=== PATIENT | female | born 1970 | race Caucasian/White ===

== ENCOUNTER 2020-10-07 19:07 | Emergency (ER) | payer OTHER ==
[2020-10-07 19:17] VITALS: RESP 17
--- NOTE | 2020-10-07 20:47 | CT ---
Exam: CT ORBITS WITH CONTRAST Clinical Indication: Left eye swelling and erythema. Comparison: None. Technique: A CT of the orbits was performed with 100 mL Isovue 300 intravenous contrast. Sagittal an d coronal reformations were obtained. Iterative dose modulation technique was performed. Findings: There is mild to moderate left preseptal orbital soft tissue edema without significant post septal in volvement. No soft tissue gas or focal fluid collection. The bilateral globes are otherwise preserved . There is no acute fracture or dislocation. The pterygoid plates and zygomatic arches, are intact. The paranasal sinuses and mastoid air cells are adequately aerated. Impression: Left preseptal orbital soft tissue edema without gas or fluid collection. No acute osseous abnormality.
--- NOTE | 2020-10-07 20:58 | ED ---
Skin/Abscess/FB HPI - General Chief complaint: Skin/Abscess/Foreign Body Stated complaint: lt eye swelling Source: patient, RN notes reviewed Mode of arrival: ambulatory Limitations: no limitations - History of Present Illness Initial comments: 50-year-old female presents to the emergency department complaining of left eye swelling. She notes that she had a bump on the inner aspect of her eye on the bridge of her nose that she tells pimple so she squeezed it. She noted that she woke up this morning with her eye swollen mildly tender to the touch. She denied any other complaints or issues. She notes that her eye is not painful to move. She wanted to come get evaluated make sure nothing was wrong. She denied any blurred vision pain with eye movement discharge chest pain shortness breath headache nausea vomiting diarrhea constipation fever fatigue chills. - Related Data Home Medications Medication Instructions Recorded Confirmed Citalopram Hydrobromide [CeleXA] 40 mg PO DAILY 02/27/14 04/12/15 Previous Rx's Medication Instructions Recorded lisinopriL [Zestril] 10 mg PO DAILY #30 tab 04/12/15 Sulfamethox-Tmp 800-160Mg [Bactrim 1 each PO Q12HR #20 tab 10/07/20 Ds] Allergies Allergy/AdvReac Type Severity Reaction Status Date / Time No Known Allergies Allergy Verified 10/07/20 19:17 Review of Systems ROS Statement: Those systems with pertinent positive or pertinent negative responses have been documented in the HPI. ROS Other: All systems not noted in ROS Statement are negative. Past Medical History Past Medical History: Hypertension Additional Past Medical History / Comment(s): anemia, History of Any Multi-Drug Resistant Organisms: None Reported Past Surgical History: Section Past Psychological History: Anxiety, Depression Smoking Status: Never smoker Past Alcohol Use History: Occasional Past Drug Use History: None Reported General Exam Limitations: no limitations General appearance: alert, in no apparent distress Head exam: Present: atraumatic, normocephalic, normal inspection Eye exam: Present: normal appearance, PERRL, EOMI, periorbital swelling, periorbital tenderness (Mild to the inner aspect on the bridge of the nose). Absent: scleral icterus, conjunctival injection Expanded Eyelids: Erythema: Left, Swelling: Left Pupils: Regular, Round: Bilateral, Reactive: Bilateral Sclera/Conjunctival: Normal Inspection: Bilateral Visual acuity (R) = 20/: 13 (With contacts) Visual acuity (L) = 20/: 13 (With contacts) Neck exam: Present: normal inspection Respiratory exam: Present: normal lung sounds bilaterally. Absent: respiratory distress, wheezes, rales, rhonchi, stridor Cardiovascular Exam: Present: regular rate, normal rhythm, normal heart sounds. Absent: systolic murmur, diastolic murmur, rubs, gallop, clicks Extremities exam: Present: normal inspection, full ROM, normal capillary refill. Absent: tenderness, pedal edema, joint swelling, calf tenderness Neurological exam: Present: alert, oriented X3 Psychiatric exam: Present: normal affect, normal mood Skin exam: Present: warm, dry, intact, normal color. Absent: rash Course Vital Signs 10/07/20 19:11 Temperature 100.2 F H Pulse Rate 71 Respiratory 17 Rate O2 Sat by Pulse 100 Oximetry Medical Decision Making - Medical Decision Making 50-year-old female complaining of left eye swelling and tenderness after squeezing which she follows up pimsocorro. CT of the orbits with IV contrast ordered. Patient on the need for any pain medication this time as she noted the pain was tolerable. Extraocular movement intact with no pain or discomfort in all directions. CT showed preseptal swelling. Given clinical symptoms and imaging most likely preseptal cellulitis, will start patient on antibiotics. Case discussed with Dr. Delarosa, patient discharge home with follow-up to primary care. - Radiology Data Radiology results: report reviewed, image reviewed CT of the orbits: Left preseptal orbital soft tissue edema without gas or fluid collection. No acute osseous abnormality. Disposition Clinical Impression: Preseptal cellulitis of left eye Disposition: HOME SELF-CARE Condition: Stable Instructions (If sedation given, give patient instructions): Periorbital Cellulitis in Adults (ED) Additional Instructions: Please return to the Emergency Department if symptoms worsen or any other concerns. Take Tylenol Motrin for inflammation. Take antibiotics as prescribed until complete. Follow-up with primary care and animal rescuer in the next several days. Is patient prescribed a controlled substance at d/c from ED?: No Referrals: Linda Colbert DO [Primary Care Provider] - 1-2 days Time of Disposition: 20:58
[2020-10-07 21:06] VITALS: BP 175/121; TEMP 98.4
[2020-10-07 21:07] VITALS: PULSE 79
[2020-10-07] MEDS ORDERED: lisinopriL 10 MG TAB PO STA (21:09)
[2020-10-07] MEDS ORDERED: AMOXIC-POT CLAV 875MG STARTER PACK 2 TAB BTL PO STA (21:09)
[2020-10-07] MEDS ORDERED: SULFAMETH-TMP DS STARTER PACK 2 TAB BTL PO STA (21:11)
== END 2020-10-07 21:17 | disposition home or self-care (01) ==
LOC: EC 19:07
DX: L03.213 Periorbital cellulitis (principal); I10 Essential (primary) hypertension
CPT/HCPCS: 99283; 70481; Q9967

== ENCOUNTER 2020-10-14 15:56 | Inpatient (IN) | payer OTHER ==
--- NOTE | 2020-10-14 16:36 | ED ---
General Adult HPI - General Chief complaint: Chest Pain Stated complaint: Chest pain/sob Time Seen by Provider: 10/14/20 16:16 Source: patient, RN notes reviewed, old records reviewed Mode of arrival: ambulatory Limitations: no limitations - History of Present Illness Initial comments: 50-year-old female presenting for evaluation of chest pain and dyspnea. Symptoms began about 2 hours prior to arrival. This is central chest. She did feel flushed and developed shortness of breath associated with her pain. This began suddenly. No previous history of DVT or PE. No history of CAD. No vomiting. No lower extremity pain or swelling. No control. No recent travel. - Related Data Home Medications Medication Instructions Recorded Confirmed Citalopram Hydrobromide [CeleXA] 40 mg PO DAILY 02/27/14 10/14/20 Acetaminophen Tab [Tylenol] 1,000 - 1,500 mg PO Q4-6H PRN 10/14/20 10/14/20 Aspirin 325 mg PO ONETIME PRN 10/14/20 10/14/20 Happy Caps (Supplement) 1 cap PO DAILY 10/14/20 10/14/20 Previous Rx's Medication Instructions Recorded Lisinopril [Prinivil] 10 mg PO DAILY 30 Days #30 tab 10/07/20 Sulfamethox-Tmp 800-160Mg [Bactrim 1 each PO Q12HR #20 tab 10/07/20 Ds] Allergies Allergy/AdvReac Type Severity Reaction Status Date / Time No Known Allergies Allergy Verified 10/14/20 18:59 Review of Systems ROS Statement: Those systems with pertinent positive or pertinent negative responses have been documented in the HPI. ROS Other: All systems not noted in ROS Statement are negative. Past Medical History Past Medical History: Hypertension Additional Past Medical History / Comment(s): anemia, History of Any Multi-Drug Resistant Organisms: None Reported Past Surgical History: Section Past Psychological History: Anxiety, Depression Smoking Status: Never smoker Past Alcohol Use History: Occasional Past Drug Use History: None Reported General Exam Limitations: no limitations General appearance: alert, in no apparent distress Head exam: Present: atraumatic, normocephalic Eye exam: Present: normal appearance, PERRL ENT exam: Present: normal exam Neck exam: Present: normal inspection. Absent: tenderness Respiratory exam: Present: normal lung sounds bilaterally, respiratory distress (Tachypneic with good air entry bilaterally.). Absent: wheezes, rales, rhonchi Cardiovascular Exam: Present: normal rhythm, tachycardia GI/Abdominal exam: Present: soft, tenderness (Epigastric tenderness to palpation). Absent: distended Extremities exam: Present: normal inspection, normal capillary refill. Absent: pedal edema, calf tenderness Neurological exam: Present: alert, oriented X3 Psychiatric exam: Present: normal affect, normal mood Skin exam: Present: warm, dry, intact. Absent: cyanosis, diaphoretic Course Vital Signs 10/14/20 10/14/20 15:58 19:09 Temperature 97.7 F Pulse Rate 108 H 101 H Respiratory 18 18 Rate Blood Pressure 167/109 157/108 O2 Sat by Pulse 98 98 Oximetry EKG Findings - EKG Comments: EKG Findings:: EKG: Sinus tachycardia, rate of 105, DC interval 156, QRS duration 70, QTC 457, no ST segment elevation. Medical Decision Making - Medical Decision Making 42-year-old female with chief complaint of chest pain and dyspnea which began suddenly prior to arrival. Patient is otherwise healthy with no chronic medical conditions. EKG is sinus tachycardia. No ST segment elevation. Chest x-ray is clear. There is concern for pulmonary embolism given her tachycardia and complaint of chest pain with dyspnea. CT angiography is negative for pulmonary embolism. She has on initial troponin 0.033 and a secondary troponin of 0.037 which is mildly elevated. She is given aspirin, beta ollie, started on heparin in the emergency department. I discussed case both with the admitting physician Dr. Wilson and and Dr. Melendez covering for cardiology. Patient is chest pain-free on reevaluation. - Lab Data Result diagrams: 10/14/20 16:35 10/14/20 16:35 Lab Results 10/14/20 10/14/20 10/14/20 Range/Units 16:35 16:35 16:35 WBC 4.5 (3.8-10.6) k/uL RBC 4.90 (3.80-5.40) m/uL Hgb 14.2 (11.4-16.0) gm/dL Hct 40.9 (34.0-46.0) % MCV 83.4 (80.0-100.0) fL MCH 29.1 (25.0-35.0) pg MCHC 34.8 (31.0-37.0) g/dL RDW 14.2 (11.5-15.5) % Plt Count 176 (150-450) k/uL MPV 6.8 Neutrophils % 75 % Lymphocytes % 13 % Monocytes % 5 % Eosinophils % 3 % Basophils % 1 % Neutrophils # 3.3 (1.3-7.7) k/uL Lymphocytes # 0.6 L (1.0-4.8) k/uL Monocytes # 0.2 (0-1.0) k/uL Eosinophils # 0.1 (0-0.7) k/uL Basophils # 0.1 (0-0.2) k/uL PT 9.7 (9.0-12.0) sec INR 0.9 (<1.2) APTT 23.2 (22.0-30.0) sec Sodium 134 L (137-145) mmol/L Potassium 3.8 (3.5-5.1) mmol/L Chloride 102 (98-107) mmol/L Carbon Dioxide 21 L (22-30) mmol/L Anion Gap 11 mmol/L BUN 11 (7-17) mg/dL Creatinine 0.79 (0.52-1.04) mg/dL Est GFR (CKD-EPI)AfAm >90 (>60 ml/min/1.73 sqM) Est GFR (CKD-EPI)NonAf 90 (>60 ml/min/1.73 sqM) Glucose 87 (74-99) mg/dL Calcium 9.0 (8.4-10.2) mg/dL Magnesium 1.8 (1.6-2.3) mg/dL Total Bilirubin 0.4 (0.2-1.3) mg/dL AST 42 H (14-36) U/L ALT 34 (4-34) U/L Alkaline Phosphatase 124 (38-126) U/L Troponin I (0.000-0.034) ng/mL Total Protein 7.9 (6.3-8.2) g/dL Albumin 4.3 (3.5-5.0) g/dL Amylase 71 (30-110) U/L Lipase 125 (23-300) U/L 10/14/20 10/14/20 Range/Units 16:35 17:55 WBC (3.8-10.6) k/uL RBC (3.80-5.40) m/uL Hgb (11.4-16.0) gm/dL Hct (34.0-46.0) % MCV (80.0-100.0) fL MCH (25.0-35.0) pg MCHC (31.0-37.0) g/dL RDW (11.5-15.5) % Plt Count (150-450) k/uL MPV Neutrophils % % Lymphocytes % % Monocytes % % Eosinophils % % Basophils % % Neutrophils # (1.3-7.7) k/uL Lymphocytes # (1.0-4.8) k/uL Monocytes # (0-1.0) k/uL Eosinophils # (0-0.7) k/uL Basophils # (0-0.2) k/uL PT (9.0-12.0) sec INR (<1.2) APTT (22.0-30.0) sec Sodium (137-145) mmol/L Potassium (3.5-5.1) mmol/L Chloride (98-107) mmol/L Carbon Dioxide (22-30) mmol/L Anion Gap mmol/L BUN (7-17) mg/dL Creatinine (0.52-1.04) mg/dL Est GFR (CKD-EPI)AfAm (>60 ml/min/1.73 sqM) Est GFR (CKD-EPI)NonAf (>60 ml/min/1.73 sqM) Glucose (74-99) mg/dL Calcium (8.4-10.2) mg/dL Magnesium (1.6-2.3) mg/dL Total Bilirubin (0.2-1.3) mg/dL AST (14-36) U/L ALT (4-34) U/L Alkaline Phosphatase (38-126) U/L Troponin I 0.033 0.037 H* (0.000-0.034) ng/mL Total Protein (6.3-8.2) g/dL Albumin (3.5-5.0) g/dL Amylase (30-110) U/L Lipase (23-300) U/L Critical Care Time Critical Care Time: Yes Total Critical Care Time: 35 Disposition Clinical Impression: Acute non-ST elevation myocardial infarction (NSTEMI) Disposition: ADMITTED IP TO THIS HOSP Condition: Stable Is patient prescribed a controlled substance at d/c from ED?: No Referrals: Linda Colbert DO [Primary Care Provider] - 1-2 days Decision to Admit Reason: Admit from EC Decision Date: 10/14/20 Decision Time: 19:12
[2020-10-14 16:43] LABS: Basophils # (A) 0.1 k/uL (0-0.2); Basophils % (A) 1 %; Eosinophils # (A) 0.1 k/uL (0-0.7); Eosinophils % (A) 3 %; HCT 40.9 % (34.0-46.0); HGB 14.2 gm/dL (11.4-16.0); Lymphocytes # (A) 0.6 k/uL (1.0-4.8); Lymphocytes % (A) 13 %; MCH 29.1 pg (25.0-35.0); MCHC 34.8 g/dL (31.0-37.0); MCV 83.4 fL (80.0-100.0); Mean Platelet Volume 6.8; Monocytes # (A) 0.2 k/uL (0-1.0); Monocytes % (A) 5 %; Neutrophils # (A) 3.3 k/uL (1.3-7.7); Neutrophils % (A) 75 %; Platelet Count 176 k/uL (150-450); RDW 14.2 % (11.5-15.5); WBC 4.5 k/uL (3.8-10.6)
--- NOTE | 2020-10-14 16:53 | CT ---
EXAMINATION TYPE: CT angio chest DATE OF EXAM: 10/14/2020 COMPARISON: None HISTORY: chest pain CT DLP: 360 mGycm Automated exposure control for dose reduction was used. CONTRAST: Performed with IV Contrast, patient injected with 100 mL of Isovue 370. There are 3-D post processed images. There is no mediastinal adenopathy. Thoracic aorta is intact. The ascending aorta measures 3.7 cm. Th ere is no dissection. There are no hilar masses. There is normal contrast opacification of the pulmon [place] arteries. There are no filling defects. Heart size is normal. There is no pericardial effusion. The lungs are clear of consolidation. There is no evidence of a pulmonary mass. Thoracic spine is int act. There is no compression fracture. IMPRESSION: No evidence of pulmonary embolism.
[2020-10-14 16:55] LABS: INR 0.9 (<1.2); Partial Thromboplastin Time 23.2 sec (22.0-30.0); Prothrombin Time 9.7 sec (9.0-12.0)
[2020-10-14 17:10] LABS: ALT 34 U/L (4-34); AST 42 U/L (14-36); African American GFR (CKD) >90 (>60 ml/min/1.73 sqM); Albumin 4.3 g/dL (3.5-5.0); Alkaline Phosphatase 124 U/L (38-126); Amylase 71 U/L (30-110); Anion Gap 11 mmol/L; Blood Urea Nitrogen 11 mg/dL (7-17); Carbon Dioxide 21 mmol/L (22-30); Chloride 102 mmol/L (98-107); Glucose 87 mg/dL (74-99); Lipase 125 U/L (23-300); Magnesium 1.8 mg/dL (1.6-2.3); Non-African American GFR(CKD) 90 (>60 ml/min/1.73 sqM); Potassium 3.8 mmol/L (3.5-5.1); Sodium 134 mmol/L (137-145); Total Bilirubin 0.4 mg/dL (0.2-1.3); Total Protein 7.9 g/dL (6.3-8.2)
--- NOTE | 2020-10-14 17:32 | XR ---
EXAMINATION TYPE: XR chest 2V DATE OF EXAM: 10/14/2020 COMPARISON: 04/12/2015 HISTORY: Chest pain TECHNIQUE: FINDINGS: Heart and mediastinum are normal. Lungs are clear. Diaphragm is normal. Bony thorax is inta ct. IMPRESSION: Normal chest.
[2020-10-14] MEDS ORDERED: HEPARIN SODIUM 1,000 UN/ML (10ML VL) IV PRN (17:40)
[2020-10-14] MEDS ORDERED: ASPIRIN 325 MG TAB PO STA (17:40)
[2020-10-14] MEDS ORDERED: HEPARIN SODIUM 1,000 UN/ML (10ML VL) IV ONE (17:40)
[2020-10-14] MEDS ORDERED: SODIUM CHLORIDE 0.9% 500 ML 500 ML IV ONE (18:15)
[2020-10-14] MEDS: HEPARIN SOD,PORK IN 0.45% NACL 25,000 UNIT in 0.45% NACL 1 250ML.BAG IV SCH (18:28)
[2020-10-14] MEDS ORDERED: NITROGLYCERIN SL TABS 0.4 MG TAB SUBLINGUAL PRN (18:52)
[2020-10-14] MEDS: ATORVASTATIN 80 MG TAB PO SCH (19:17)
[2020-10-14] MEDS ORDERED: METOPROLOL TARTRATE 25 MG TAB PO SCH (21:00)
[2020-10-14] MEDS: NITROGLYCERIN OINT 1 INCH/GM PACKET TOPICAL SCH (23:06)
[2020-10-14] MEDS ORDERED: diphenhydrAMINE 25 MG CAP PO STA (23:35)
--- NOTE | 2020-10-14 23:41 | P.HPIM ---
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 Suddenly around 10 in the morning while at work started experiencing some chest pressure she didn't think much of it as the day progressed it was getting worse and she started experiencing some more pressure in her chest nonradiating not associated with any movements or deep breaths, she was also feeling hot denies any nausea vomiting denies any sweating palpitations or dizziness. Her coworkers started noticing that she did not look herself and recommended that she gets evaluated. She reports that with moderately strenuous activities she would get some shortness of breath and she always thought that she is out of shape. She never had any cardiac workup she denies any history of CAD. However she reports that her cousins from mother's side has of premature CAD all in their 40s with open heart surgeries. 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 Otherwise denies any recent traveling or hospitalization she's been taking some Bactrim for infected papule at her nasal bridge. In the ED EKG showed sinus tachycardia CT angios the chest showed no acute PE troponins were slightly elevated, Covid testing negative Patient otherwise denies any abdominal pain nausea vomiting diarrhea denies in GI bleeding. She is currently on her period. Review of Systems Pertinent positives as noted in HPI. All other systems were reviewed and are neg ative Past Medical History Past Medical History: Hypertension Additional Past Medical History / Comment(s): anemia, History of Any Multi-Drug Resistant Organisms: None Reported Past Surgical History: Section Past Psychological History: Anxiety, Depression Smoking Status: Never smoker Past Alcohol Use History: Occasional Past Drug Use History: None Reported - Past Family History Family Additional Family Medical History / Comment(s): Premature CAD Cousens from mother's side Medications and Allergies Home Medications Medication Instructions Recorded Confirmed Type Citalopram Hydrobromide [CeleXA] 40 mg PO DAILY 02/27/14 10/14/20 History Lisinopril [Prinivil] 10 mg PO DAILY 30 Days #30 tab 10/07/20 10/14/20 Rx Sulfamethox-Tmp 800-160Mg [Bactrim 1 each PO Q12HR #20 tab 10/07/20 10/14/20 Rx Ds] Acetaminophen Tab [Tylenol] 1,000 - 1,500 mg PO Q4-6H PRN 10/14/20 10/14/20 History Aspirin 325 mg PO ONETIME PRN 10/14/20 10/14/20 History Happy Caps (Supplement) 1 cap PO DAILY 10/14/20 10/14/20 History Allergies Allergy/AdvReac Type Severity Reaction Status Date / Time No Known Allergies Allergy Verified 10/14/20 18:59 Physical Exam Vitals: Vital Signs Temp Pulse Resp BP Pulse Ox 10/14/20 19:09 101 H 18 157/108 98 10/14/20 15:58 97.7 F 108 H 18 167/109 98 Intake and Output 10/14/20 10/14/20 10/14/20 06:59 14:59 22:59 Other: Weight 90.718 kg Constitutional: No acute distress, conversant, pleasant Eyes: Anicteric sclerae, moist conjunctiva, Pupils equal round reactive to light ENMT: NC/AT Oropharynx clear, no erythema, or exudates Neck: Supple, FROM, no masses, or JVD No carotid bruits No thyromegaly Lungs: Clear to auscultation Clear to percussion Normal respiratory effort, no accessory muscle use Cardiovascular: Heart regular in rate and rhythm, No murmurs, gallops, or rubs No peripheral edema Abdominal: Soft Nontender, no guarding, rebound or rigidity Abdomen moving with respiration Normoactive bowel sounds No hepatomegaly, No splenomegaly No palpable mass No abdominal wall hernia noted Skin: Her skin look flushed with diffuse erythema nor to Cartia no hives no stridors no wheezing . She is not aware of any ALLERGIES Normal temperature, tone, texture, turgor No induration No subcutaneous nodules No rash, lesions No ulcers Extremities: No digital cyanosis No clubbing Pedal pulses intact and symmetrical Radial pulses intact and symmetrical No calf tenderness Psychiatric: Alert and oriented to person, place and time Appropriate affect fair judgement Neuro Muscles Strength 5/5 in all 4 extremities Sensation to light touch grossly present throughout Cranial nerves II-XII grossly intact No focal sensory deficits Lymphatics: no palpable cervical or supraclavicular , or inguinal lymph nodes Results CBC & Chem 7: 10/14/20 16:35 10/14/20 16:35 Labs: Abnormal Lab Results - Last 24 Hours (Table) 10/14/20 10/14/20 10/14/20 Range/Units 16:35 16:35 17:55 Lymphocytes # 0.6 L (1.0-4.8) k/uL Sodium 134 L (137-145) mmol/L Carbon Dioxide 21 L (22-30) mmol/L AST 42 H (14-36) U/L Troponin I 0.037 H* (0.000-0.034) ng/mL Assessment and Plan Assessment: NSTEMI Trend troponins Aspirin, statin, nitro Metoprolol 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
[2020-10-14] MEDS ORDERED: FAMOTIDINE 20 MG/2 ML VIAL IV ONE (23:45)
[2020-10-14] MEDS: chlordiazePOXIDE 25 MG CAP PO SCH (23:56)
[2020-10-15] MEDS ORDERED: LORazepam 2 MG/ML INJ IV PRN ×3 (00:20)
[2020-10-15] MEDS: TRIMETHOPRIM PO SCH ×3 (03:33→21:15)
[2020-10-15] MEDS: SULFAMETHOXAZOLE PO SCH ×3 (03:33→21:15)
[2020-10-15] MEDS: ACETAMINOPHEN TAB 325 MG TAB PO PRN ×3 (04:12→20:28)
[2020-10-15] MEDS: NITROGLYCERIN OINT 1 INCH/GM PACKET TOPICAL SCH ×3 (06:03→17:42)
[2020-10-15 07:21] LABS: Prothrombin Time 10.6 sec (9.0-12.0)
[2020-10-15 07:31] LABS: ALT 29 U/L (4-34); AST 30 U/L (14-36); African American GFR (CKD) >90 (>60 ml/min/1.73 sqM); Albumin 3.2 g/dL (3.5-5.0); Alkaline Phosphatase 95 U/L (38-126); Anion Gap 5 mmol/L; Blood Urea Nitrogen 9 mg/dL (7-17); Calcium 8.3 mg/dL (8.4-10.2); Carbon Dioxide 23 mmol/L (22-30); Chloride 108 mmol/L (98-107); Glucose 97 mg/dL (74-99); Non-African American GFR(CKD) >90 (>60 ml/min/1.73 sqM); Potassium 3.8 mmol/L (3.5-5.1); Sodium 136 mmol/L (137-145); Total Bilirubin 0.2 mg/dL (0.2-1.3); Total Protein 6.2 g/dL (6.3-8.2)
[2020-10-15 07:35] LABS: HCT 35.7 % (34.0-46.0); HGB 11.7 gm/dL (11.4-16.0); MCH 27.6 pg (25.0-35.0); MCV 83.9 fL (80.0-100.0); RBC 4.26 m/uL (3.80-5.40); WBC 3.4 k/uL (3.8-10.6)
[2020-10-15 07:36] LABS: MCHC 32.9 g/dL (31.0-37.0); Mean Platelet Volume 6.8; Platelet Count 142 k/uL (150-450); RDW 14.6 % (11.5-15.5)
[2020-10-15] MEDS: lisinopriL 10 MG TAB PO SCH (08:10)
[2020-10-15] MEDS: METOPROLOL TARTRATE 50 MG TAB PO SCH ×2 (08:10→20:28)
[2020-10-15] MEDS: CITALOPRAM HYDROBROMIDE 20 MG TAB PO SCH (08:10)
[2020-10-15] MEDS: ATORVASTATIN 80 MG TAB PO SCH (08:10)
[2020-10-15] MEDS: chlordiazePOXIDE 25 MG CAP PO SCH ×3 (08:11→23:13)
[2020-10-15 08:43] LABS: Lymphocytes # (M) 0.68 k/uL (1.0-4.8); Monocytes # (M) 0.44 k/uL (0-1.0); Neutrophils # (M) 2.18 k/uL (1.3-7.7); Neutrophils % (M) 64 %; Nucleated Red Blood Cells 0 /100 WBC (0-0); Total Cells Counted 100
[2020-10-15] MEDS ORDERED: ASPIRIN 325 MG TAB PO SCH (09:00)
--- NOTE | 2020-10-15 11:27 | P.CRDCN ---
History of Present Illness Consult date: 10/15/20 History of present illness: HISTORY OF PRESENT ILLNESS: This is a 50-year-old female with a past medical history significant for hypertension and daily alcohol use. 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 We have been asked to see the patient in consultation for chest pain. Patient examined at the bedside. Patient reports over the past week she has been feeling very tired and having what she thought was hot flashes. She states yesterday she was at work and was sitting at her desk when she began to feel short of breath. She reports having some mild chest pressure. She states this was intermittent over a couple hours. She denies any radiation of the pain. She denied any dizziness or lightheadedness. She states a coworker recommended that she come to the hospital for further evaluation. At the time of examination this morning the patient reports minimal shortness of breath with exertion and very minimal chest discomfort with exertion. She appears to be resting in bed comfortably in no acute distress. Patient is a nonsmoker. She reports drinking one hard cider or 1-2 glasses of wine a day. She denies any history of premature coronary artery disease. However according to internal medicine's documentation, the patient does have a family history of heart disease (cousins on her mothers side). Patient denies ever having a stress test or cardiac catheterization in the past. EKG reveals sinus tachycardia with no signs of acute ischemia Chest xray normal chest Laboratory data: WBC 3.4. Hemoglobin 11.7. Platelet count 142. Sodium 135. Potassium 3.8. BUN 9. Creatinine 0.74. Troponin 0.033. 0.037. 0.048. 0.044. 0.018. Current home cardiac medications include lisinopril 10 mg daily REVIEW OF SYSTEMS: At the time of my exam: CONSTITUTIONAL: Denies fever or chills. HEENT: Denies blurred vision, vision changes, or eye pain. Denies hemoptysis CARDIOVASCULAR: Denies chest pain. Denies orthopnea. Denies PND. Denies palpitations RESPIRATORY: Denies shortness of breath. GASTROINTESTINAL: Denies abdominal pain. Denies nausea or vomiting. HEMATOLOGIC: Denies bleeding disorders. GENITOURINARY: Denies any blood in urine. SKIN: Denies pruitis. Denies rash. PHYSICAL EXAM: VITAL SIGNS: Reviewed. GENERAL: Well-developed in no acute distress. HEENT: Head is normocephalic. Pupils are equal, round. Sclerae anicteric. Mucous membranes of the mouth are moist. Neck supple. No JVD or thyromegaly LUNGS: Respirations even and unlabored. Lungs essentially clear to auscultation bilaterally. HEART: Regular rate and rhythm. S1 and S2 heard. ABDOMEN: Soft. Nondistended. Nontender. EXTREMITIES: Normal range of motion. No clubbing or cyanosis. Peripheral pulses intact. No lower extremity edema NEUROLOGIC: Awake and alert. Oriented x 3. ASSESSMENT: Chest pain and shortness of breath Mildly abnormal troponins, not suggestive of ACS Hypertension Daily alcohol use PLAN: An acute coronary event has been ruled out Continue Lisinopril Add aspirin 81mg daily, lipitor 20mg, and metoprolol 50mg BID Continue heparin drip until 6pm tonight and then DC. Start subcu heparin afterwards. Obtain lipid panel Obtain 2D echo to assess cardiac structure and function Patient to undergo stress echocardiogram tomorrow Absence from alcohol recommended Further recommendations pending course Nurse practitioner note has been reviewed by physician. Signing provider agrees with the documented findings, assessment, and plan of care. Past Medical History Past Medical History: Hypertension Additional Past Medical History / Comment(s): anemia, History of Any Multi-Drug Resistant Organisms: None Reported Past Surgical History: Section Past Anesthesia/Blood Transfusion Reactions: No Reported Reaction Past Psychological History: Anxiety, Depression Smoking Status: Never smoker Past Alcohol Use History: Occasional Past Drug Use History: None Reported - Past Family History Family Additional Family Medical History / Comment(s): Premature CAD Cousens from mother's side Medications and Allergies Home Medications Medication Instructions Recorded Confirmed Type Citalopram Hydrobromide [CeleXA] 40 mg PO DAILY 02/27/14 10/14/20 History Lisinopril [Prinivil] 10 mg PO DAILY 30 Days #30 tab 10/07/20 10/14/20 Rx Sulfamethox-Tmp 800-160Mg [Bactrim 1 each PO Q12HR #20 tab 10/07/20 10/14/20 Rx Ds] Acetaminophen Tab [Tylenol] 1,000 - 1,500 mg PO Q4-6H PRN 10/14/20 10/14/20 History Aspirin 325 mg PO ONETIME PRN 10/14/20 10/14/20 History Happy Caps (Supplement) 1 cap PO DAILY 10/14/20 10/14/20 History Allergies Allergy/AdvReac Type Severity Reaction Status Date / Time No Known Allergies Allergy Verified 10/14/20 18:59 Physical Exam Vitals: Vital Signs Temp Pulse Pulse Resp BP BP Pulse Ox 10/15/20 08:05 97.6 F 86 16 113/73 96 10/15/20 03:57 98.1 F 94 16 119/78 99 10/14/20 23:45 91 16 131/84 98 10/14/20 20:56 98.7 F 94 16 137/101 98 10/14/20 20:18 98.6 F 101 H 18 153/101 98 10/14/20 19:09 101 H 18 157/108 98 10/14/20 15:58 97.7 F 108 H 18 167/109 98 Intake and Output 10/14/20 10/15/20 10/15/20 22:59 06:59 14:59 Intake Total 65.98 91.789 Balance 65.98 91.789 Intake: Intake, IV Titration 65.98 91.789 Amount Heparin Sod,Pork in 0.45% 65.98 91.789 NaCl 25,000 unit In 0.45 % NaCl 1 250ml.bag @ 11. 02 UNITS/KG/HR 9.997 mls/ hr IV .Q24H [facility] Rx#: [id number] Other: Voiding Method Toilet Toilet # Voids 1 Weight 90.718 kg Results 10/15/20 06:36 10/15/20 06:36 Cardiac Enzymes 10/14/20 10/14/20 10/14/20 Range/Units 16:35 16:35 17:55 AST 42 H (14-36) U/L Troponin I 0.033 0.037 H* (0.000-0.034) ng/mL 10/14/20 10/14/20 10/15/20 Range/Units 20:29 23:54 06:36 AST 30 (14-36) U/L Troponin I 0.048 H* 0.044 H* (0.000-0.034) ng/mL 10/15/20 Range/Units 06:36 AST (14-36) U/L Troponin I 0.018 (0.000-0.034) ng/mL Coagulation 10/14/20 10/14/20 10/15/20 Range/Units 16:35 23:54 06:36 PT 9.7 10.6 (9.0-12.0) sec APTT 23.2 31.1 H 41.0 H (22.0-30.0) sec CBC 10/14/20 10/15/20 Range/Units 16:35 06:36 WBC 4.5 3.4 L (3.8-10.6) k/uL RBC 4.90 4.26 (3.80-5.40) m/uL Hgb 14.2 11.7 (11.4-16.0) gm/dL Hct 40.9 35.7 (34.0-46.0) % Plt Count 176 142 L (150-450) k/uL Comprehensive Metabolic Panel 10/14/20 10/15/20 Range/Units 16:35 06:36 Sodium 134 L 136 L (137-145) mmol/L Potassium 3.8 3.8 (3.5-5.1) mmol/L Chloride 102 108 H (98-107) mmol/L Carbon Dioxide 21 L 23 (22-30) mmol/L BUN 11 9 (7-17) mg/dL Creatinine 0.79 0.74 (0.52-1.04) mg/dL Glucose 87 97 (74-99) mg/dL Calcium 9.0 8.3 L (8.4-10.2) mg/dL AST 42 H 30 (14-36) U/L ALT 34 29 (4-34) U/L Alkaline Phosphatase 124 95 (38-126) U/L Total Protein 7.9 6.2 L (6.3-8.2) g/dL Albumin 4.3 3.2 L (3.5-5.0) g/dL Current Medications Generic Name Dose Route Start Last Admin Trade Name Freq PRN Reason Stop Dose Admin Acetaminophen 650 mg 10/15/20 04:10 10/15/20 11:15 Acetaminophen Tab 325 Mg Tab PO 650 mg Q6HR PRN Administration Fever and/ or Pain Aspirin 81 mg 10/16/20 09:00 Aspirin 81 Mg PO DAILY [facility] Atorvastatin Calcium 80 mg 10/14/20 19:00 10/15/20 08:10 Atorvastatin 80 Mg Tab PO 80 mg DAILY SANKET Administration Chlordiazepoxide HCl 25 mg 10/14/20 23:15 10/15/20 08:11 Chlordiazepoxide 25 Mg Cap PO 25 mg TID [facility] Administration Citalopram Hydrobromide 40 mg 10/15/20 09:00 10/15/20 08:10 Citalopram Hydrobromide 20 Mg Tab PO Not Given DAILY [facility] Heparin Sodium (Porcine) 0 unit 10/14/20 17:40 10/15/20 08:15 Heparin Sodium 1,000 Un/Ml (10ml Vl) IV 4,000 unit PER PROTOCOL PRN Administration Low PTT Protocol Heparin Sodium/Sodium Chloride 250 mls @ 9.997 mls/hr 10/14/20 17:45 10/15/20 08:17 25,000 unit/ Sodium Chloride IV 17.03 units/kg/hr .Q24H SANKET 15.449 mls/hr Titration Protocol 11.02 UNITS/KG/HR Lisinopril 10 mg 10/15/20 09:00 10/15/20 08:10 Lisinopril 10 Mg Tab PO 10 mg DAILY [facility] Administration Lorazepam 1 mg 10/15/20 00:20 Lorazepam 2 Mg/Ml Inj IV Q2HR PRN CIWA 8 or 9 Lorazepam 1 mg 10/15/20 00:20 Lorazepam 2 Mg/Ml Inj IV Q1HR PRN CIWA 10 to 15 Lorazepam 2 mg 10/15/20 00:20 Lorazepam 2 Mg/Ml Inj IV 10/17/20 00:20 Q10M PRN CIWA 16 or higher Metoprolol Tartrate 50 mg 10/15/20 09:00 10/15/20 08:10 Metoprolol Tartrate 50 Mg Tab PO 50 mg BID [facility] Administration Nitroglycerin 0.4 mg 10/14/20 18:52 Nitroglycerin Sl Tabs 0.4 Mg Tab SUBLINGUAL Q5M PRN Chest Pain Nitroglycerin 1 inch 10/15/20 00:00 10/15/20 06:03 Nitroglycerin Oint 1 Inch/Gm Packet TOPICAL Not Given Q6HR [facility] Non-Formulary Medication 1 each 10/14/20 23:15 10/15/20 08:11 Sulfamethox-Tmp 800-160mg [Bactrim Ds 800-160 Mg] PO Not Given Q12HR [facility] Thiamine HCl 100 mg 10/15/20 17:30 Thiamine 100 Mg Tab PO BID-W/MEALS [facility] Intake and Output 10/14/20 10/15/20 10/15/20 22:59 06:59 14:59 Intake Total 65.98 91.789 Balance 65.98 91.789 Intake: Intake, IV Titration 65.98 91.789 Amount Heparin Sod,Pork in 0.45% 65.98 91.789 NaCl 25,000 unit In 0.45 % NaCl 1 250ml.bag @ 11. 02 UNITS/KG/HR 9.997 mls/ hr IV .Q24H [facility] Rx#: [id number] Other: Voiding Method Toilet Toilet # Voids 1 Weight 90.718 kg 10/15/20 06:36 10/15/20 06:36
[2020-10-15 13:11] LABS: Chol/HDL Ratio 5.52; Cholesterol 116 mg/dL (0-200)
--- NOTE | 2020-10-15 13:41 | P.PN ---
Subjective Progress Note Date: 10/15/20 Patient was sleepy this morning when I saw her. She denies any chest pain. No acute events overnight reported by nursing staff. Objective - Vital Signs Vital signs: Vital Signs Temp 98 F 10/15/20 12:05 Pulse 76 10/15/20 12:05 Resp 16 10/15/20 12:05 BP 98/63 10/15/20 12:05 Pulse Ox 95 10/15/20 12:05 Intake & Output 10/14/20 10/15/20 10/15/20 18:59 06:59 18:59 Intake Total 65.98 91.789 Balance 65.98 91.789 Weight 90.718 kg 90.718 kg Intake: Intake, IV Titration 65.98 91.789 Amount Heparin Sod,Pork in 0.45% 65.98 91.789 NaCl 25,000 unit In 0.45 % NaCl 1 250ml.bag @ 11. 02 UNITS/KG/HR 9.997 mls/ hr IV .Q24H [facility] Rx#: [id number] Other: Voiding Method Toilet # Voids 1 # Bowel Movements 0 - Exam General: The patient is awake and alert, in no distress Eye: there is normal conjunctiva bilaterally. Neck: The neck is supple, there is no JVD. Cardiovascular: Normal S1-S2, no S3-S4, no murmurs. Respiratory: Lungs clear to auscultation bilaterally Gastrointestinal: Abdomen is soft, nontender Musculoskeletal: There is no pedal edema. Neurological:. Speech is normal. Skin: Skin is warm and dry - Labs CBC & Chem 7: 10/15/20 06:36 10/15/20 06:36 Labs: Abnormal Lab Results - Last 24 Hours (Table) 10/14/20 10/14/20 10/14/20 Range/Units 16:35 16:35 17:55 WBC (3.8-10.6) k/uL Plt Count (150-450) k/uL Lymphocytes # 0.6 L (1.0-4.8) k/uL Lymphocytes # (Manual) (1.0-4.8) k/uL APTT (22.0-30.0) sec Sodium 134 L (137-145) mmol/L Chloride (98-107) mmol/L Carbon Dioxide 21 L (22-30) mmol/L Calcium (8.4-10.2) mg/dL AST 42 H (14-36) U/L Troponin I 0.037 H* (0.000-0.034) ng/mL Total Protein (6.3-8.2) g/dL Albumin (3.5-5.0) g/dL HDL Cholesterol (40.0-60.0) mg/dL 10/14/20 10/14/20 10/14/20 Range/Units 20:29 23:54 23:54 WBC (3.8-10.6) k/uL Plt Count (150-450) k/uL Lymphocytes # (1.0-4.8) k/uL Lymphocytes # (Manual) (1.0-4.8) k/uL APTT 31.1 H (22.0-30.0) sec Sodium (137-145) mmol/L Chloride (98-107) mmol/L Carbon Dioxide (22-30) mmol/L Calcium (8.4-10.2) mg/dL AST (14-36) U/L Troponin I 0.048 H* 0.044 H* (0.000-0.034) ng/mL Total Protein (6.3-8.2) g/dL Albumin (3.5-5.0) g/dL HDL Cholesterol (40.0-60.0) mg/dL 10/15/20 10/15/20 10/15/20 Range/Units 06:36 06:36 06:36 WBC 3.4 L (3.8-10.6) k/uL Plt Count 142 L (150-450) k/uL Lymphocytes # (1.0-4.8) k/uL Lymphocytes # (Manual) 0.68 L (1.0-4.8) k/uL APTT 41.0 H (22.0-30.0) sec Sodium 136 L (137-145) mmol/L Chloride 108 H (98-107) mmol/L Carbon Dioxide (22-30) mmol/L Calcium 8.3 L (8.4-10.2) mg/dL AST (14-36) U/L Troponin I (0.000-0.034) ng/mL Total Protein 6.2 L (6.3-8.2) g/dL Albumin 3.2 L (3.5-5.0) g/dL HDL Cholesterol 21.0 L (40.0-60.0) mg/dL Assessment and Plan Assessment: This is a 50-year-old female with past medical history noted below that presented to the emergency room with chest pain. Patient was evaluated in the ER and admitted to the hospital for further management of her medical problems noted below. 1. Non-ST elevation [place], with slightly elevated troponin. Treated medically with IV heparin, aspirin, and Lipitor. Seen and evaluated by cardiology. Cardiac stress test and echocardiogram ordered for tomorrow. 2. Essential hypertension: Blood pressure within acceptable range 3. Alcohol abuse: Counseled extensively to quit. Ativan as needed per [facility] protocol Today, I reviewed her medication list and lab work results. Continue current regimen. Plan to discontinue heparin tonight. CT angiogram in the ER negative for PE.
[2020-10-15] MEDS: THIAMINE 100 MG TAB PO SCH (16:38)
[2020-10-15] MEDS: HEPARIN SOD,PORK IN 0.45% NACL 25,000 UNIT in 0.45% NACL 1 250ML.BAG IV SCH (16:55)
[2020-10-15] MEDS: HEPARIN SODIUM,PORCINE/PF 5,000 UNIT/0.5 ML SYRINGE SQ SCH (20:27)
[2020-10-16] MEDS: ACETAMINOPHEN TAB 325 MG TAB PO PRN ×2 (05:25→12:09)
[2020-10-16] MEDS: NITROGLYCERIN OINT 1 INCH/GM PACKET TOPICAL SCH ×4 (05:34→17:39)
[2020-10-16] MEDS ORDERED: ASPIRIN 81 MG PO SCH (09:00)
[2020-10-16] MEDS ORDERED: ATORVASTATIN 20 MG TAB PO SCH (09:00)
[2020-10-16] MEDS: THIAMINE 100 MG TAB PO SCH ×2 (09:14→17:39)
[2020-10-16] MEDS: HEPARIN SODIUM,PORCINE/PF 5,000 UNIT/0.5 ML SYRINGE SQ SCH (09:14)
[2020-10-16] MEDS: chlordiazePOXIDE 25 MG CAP PO SCH ×2 (09:14→17:38)
[2020-10-16] MEDS: CITALOPRAM HYDROBROMIDE 20 MG TAB PO SCH (09:14)
[2020-10-16] MEDS: lisinopriL 10 MG TAB PO SCH (09:14)
[2020-10-16] MEDS: SULFAMETHOXAZOLE PO SCH (09:22)
[2020-10-16] MEDS: TRIMETHOPRIM PO SCH (09:22)
[2020-10-16] MEDS ORDERED: KETOROLAC 15 MG/ML 1 ML VIAL IVP PRN (10:50)
[2020-10-16] MEDS: METOPROLOL TARTRATE 50 MG TAB PO SCH (12:09)
[2020-10-16 12:20] VITALS: TEMP 97.7
--- NOTE | 2020-10-16 13:54 | P.STRESS ---
- Stress Test Note Stress Test Results/Findings: Exam Performed: stress echo exercise Exam Date: 10/16/20 Reason for Exam: NSTEMI Height: 5 ft 7 in Weight: 91.3 kg Protocol: STRESS ECHO Stage: 3 Duration of Exercise: 7:24 Resting Heart Rate: 74 Resting Blood Pressure: 121/86 Maximum Achieved Heart Rate: 145 Maximum Achieved Blood Pressure: 166/63 85% PMHR: 146 100% PMHR: 172 METS: 8.9 Technologist Comment: Stress Test Results/Findings: This is a 50-year-old female with history of hypertension being evaluated for symptoms of shortness of breath. Stress data: Baseline EKG showed a sinus rhythm with normal IA interval and QRS duration. Blood pressure at rest is 121/86 with pulse rate of 74. Patient walked on the David protocol for 7 minutes and 24 seconds, reaching a maximum heart rate of 145 with a peak blood pressure 166/63. EKGs taken during and after the exercise did not reveal any significant changes from the baseline. Echo data: Baseline. He echo images show normal wall motion and thickening. The exercise echo images showed augmentation of wall motion and thickening in all the segments. Final impression: #1. Negative stress test #2. Negative stress echo.
[2020-10-16 14:59] VITALS: BP 107/56; PULSE 56; RESP 16
--- NOTE | 2020-10-16 15:06 | P.DS ---
Providers Date of admission: 10/14/20 18:54 Expected date of discharge: 10/16/20 Attending physician: Darnell Horta Consults: 10/14/20 18:53 Consult Physician Urgent Consulting Provider: Akilah Melendez Consult Reason/Comments: NSTEMI Do you want consulting provider notified?: Yes Primary care physician: [facility] Course: This is a 50-year-old female with past medical history noted below that presented to the emergency room with chest pain. Patient was evaluated in the ER and admitted to the hospital for further management of her medical problems noted below. 1. Non-ST elevation [place], with slightly elevated troponin. Treated medically with IV heparin, aspirin, and Lipitor. Seen and evaluated by cardiology. Troponin returned back to normal. Patient underwent cardiac stress test that was negative. It was thought that her troponin elevation secondary to demand/supply mismatch. Patient will be discharged home on aspirin. LDL is 72. CT angiogram on presentation negative for PE. 2. Essential hypertension: Blood pressure within acceptable range 3. Alcohol abuse: Counseled extensively to quit. Patient will be discharged home in a stable condition. For further details about this hospitalization please refer to the electronic chart. Time spent on discharge > 30 minutes including counseling and coordination of care Patient Condition at Discharge: Stable Plan - Discharge Summary Discharge Rx Participant: No New Discharge Prescriptions: New Aspirin 81 mg PO DAILY #30 chew Continue Citalopram Hydrobromide [CeleXA] 40 mg PO DAILY Lisinopril [Prinivil] 10 mg PO DAILY 30 Days #30 tab Acetaminophen Tab [Tylenol] 1,000 - 1,500 mg PO Q4-6H PRN PRN Reason: Pain Discontinued Aspirin 325 mg PO ONETIME PRN PRN Reason: Chest Pain No Action Sulfamethox-Tmp 800-160Mg [Bactrim Ds] 1 each PO Q12HR #20 tab Happy Caps (Supplement) 1 cap PO DAILY Discharge Medication List Citalopram Hydrobromide [CeleXA] 40 mg PO DAILY 02/27/14 [History] Lisinopril [Prinivil] 10 mg PO DAILY 30 Days #30 tab 10/07/20 [Rx] Sulfamethox-Tmp 800-160Mg [Bactrim Ds] 1 each PO Q12HR #20 tab 10/07/20 [Rx] Acetaminophen Tab [Tylenol] 1,000 - 1,500 mg PO Q4-6H PRN 10/14/20 [History] Happy Caps (Supplement) 1 cap PO DAILY 10/14/20 [History] Aspirin 81 mg PO DAILY #30 chew 10/16/20 [Rx] Follow up Appointment(s)/Referral(s): Akilah Melendez MD [STAFF PHYSICIAN] - 1 Week Linda Colbert DO [Primary Care Provider] - 1-2 days
--- NOTE | 2020-10-17 12:00 | ECHOS ---
Stress Test Results/Findings: Exam Performed: stress echo exercise Exam Date: 10/16/20 Reason for Exam: NSTEMI Height: 5 ft 7 in Weight: 91.3 kg Protocol: STRESS ECHO Stage: 3 Duration of Exercise: 7:24 Resting Heart Rate: 74 Resting Blood Pressure: 121/86 Maximum Achieved Heart Rate: 145 Maximum Achieved Blood Pressure: 166/63 85% PMHR: 146 100% PMHR: 172 METS: 8.9 Technologist Comment: Stress Test Results/Findings: This is a 50-year-old female with history of hypertension being evaluated for symptoms of shortness of breath. Stress data: Baseline EKG showed a sinus rhythm with normal MD interval and QRS duration. Blood pressure at rest is 121/86 with pulse rate of 74. Patient walked on the David protocol for 7 minutes and 24 seconds, reaching a maximum heart rate of 145 with a peak blood pressure 166/63. EKGs taken during and after the exercise did not reveal any significant changes from the baseline. Echo data: Baseline. He echo images show normal wall motion and thickening. The exercise echo images showed augmentation of wall motion and thickening in all the segments. Final impression: #1. Negative stress test #2. Negative stress echo. GAURAV
--- NOTE | 2020-10-31 09:39 | ECHOF ---
Referral Reason:NSTEMI MEASUREMENTS -------- HEIGHT: 170.2 cm WEIGHT: 90.7 kg BP: 122/78 RVIDd: 3.2 cm (< 3.3) IVSd: 1.1 cm (0.6 - 1.1) LVIDd: 4.2 cm (3.9 - 5.3) LVPWd: 1.2 cm (0.6 - 1.1) IVSs: 1.7 cm LVIDs: 2.9 cm LVPWs: 1.6 cm LA Diam: 3.5 cm (2.7 - 3.8) LAESV Index (A-L): 21.85 ml/m Ao Diam: 3.2 cm (2.0 - 3.7) AV Cusp: 2.2 cm (1.5 - 2.6) MV EXCURSION: 16.269 mm (> 18.000) MV EF SLOPE: 116 mm/s (70 - 150) EPSS: 0.4 cm MV E Keegan: 0.82 m/s MV DecT: 257 ms MV A Keegan: 0.69 m/s MV E/A Ratio: 1.20 RAP: 5.00 mmHg RVSP: 29.66 mmHg FINDINGS -------- Sinus rhythm. This was a technically good study. The left ventricular size is normal. There is borderline concentric left ventricular hypertrophy. Overall left ventricular systolic function is normal with, an EF between 60 - 65 %. The right ventricle is normal in size. Normal LA size by volume 22+/-6 ml/m2. The right atrium is normal in size. Interatrial and interventricular septum intact. The aortic valve is trileaflet, and appears structurally normal. No aortic stenosis or regurgitation. There is trace to mild mitral regurgitation. Mild tricuspid regurgitation present. Right ventricular systolic pressure is normal at < 35 mmHg. There is no pulmonic regurgitation present. The aortic root size is normal. Normal inferior vena cava with normal inspiratory collapse consistent with estimated right atrial pre ssure of 5 mmHg. There is no pericardial effusion. CONCLUSIONS -------- 1. The left ventricular size is normal. 2. There is borderline concentric left ventricular hypertrophy. 3. Overall left ventricular systolic function is normal with, an EF between 60 - 65 %. 4. The aortic valve is trileaflet, and appears structurally normal. No aortic stenosis or regurgitati on. 5. There is trace to mild mitral regurgitation. 6. Mild tricuspid regurgitation present. 7. There is no pericardial effusion. COST ACCOUNTING ANALYST: Fatimah Myers RDCS
== END 2020-10-16 18:15 | disposition home or self-care (01) | DRG 282 ==
LOC: EC 15:56 → 3SCARD 18:54
PROVIDERS: ADMIT Internal Medicine; ATTEND Internal Medicine
DX: I21.4 Non-ST elevation (NSTEMI) myocardial infarction (principal); Z20.822 Contact with and (suspected) exposure to COVID-19; I10 Essential (primary) hypertension; F32.9 Major depressive disorder, single episode, unspecified; F41.9 Anxiety disorder, unspecified; Z82.49 Family history of ischemic heart disease and other diseases of the circulatory system; Z79.899 Other long term (current) drug therapy; F10.10 Alcohol abuse, uncomplicated; Z71.41 Alcohol abuse counseling and surveillance of alcoholic; L08.9 Local infection of the skin and subcutaneous tissue, unspecified
CPT/HCPCS: 36415; 71046; 71275; 80053; 80061; 82150; 83036; 83690; 83735; 84443; 84484; 85025; 85610; 85730; 87635; 93005; 93306; 93351; 96374; 99291

== ENCOUNTER 2021-02-23 05:28 | Emergency (ER) | payer OTHER ==
[2021-02-23 05:40] VITALS: TEMP 97.9
[2021-02-23] MEDS ORDERED: ACETAMINOPHEN TAB 500 MG TAB PO STA (05:42)
[2021-02-23] MEDS ORDERED: SODIUM CHLORIDE 0.9% 1,000 ML IV STA ×3 (05:42→06:01)
[2021-02-23] MEDS ORDERED: ONDANSETRON 4 MG/2 ML VIAL IVP STA (05:42)
[2021-02-23] MEDS ORDERED: KETOROLAC 15 MG/ML 1 ML VIAL IVP STA (05:42)
--- NOTE | 2021-02-23 05:44 | ED ---
Nausea/Vomiting/Diarrhea HPI - General Chief complaint: Nausea/Vomiting/Diarrhea Stated complaint: Nausea,Vomiting,Headache Time Seen by Provider: 02/23/21 05:31 Source: patient, RN notes reviewed, old records reviewed Mode of arrival: ambulatory Limitations: no limitations - History of Present Illness Initial comments: This is a 50-year-old female DF for evaluation. Patient resents today for fevers chills and bodyaches. Nausea vomiting multiple times in the last few days. Patient has severe pain, aches patient states she had coronavirus a few months ago. Today she has had recent diagnosis of urinary tract infection. MD complaint: nausea, vomiting, abdominal pain, other (Current chills) -: days(s) Description of Vomiting: food contents Associated Abdominal Pain: Yes Location: diffuse Radiation: none Severity: moderate Severity scale (1-10): 4 Quality: aching Consistency: intermittent Improves with: none Worsens with: none Context: sick contacts Associated Symptoms: myalgias, cough, loss of appetite, malaise, nausea/vomiting, weakness - Related Data Home Medications Medication Instructions Recorded Confirmed Citalopram Hydrobromide [CeleXA] 40 mg PO DAILY 02/27/14 10/14/20 Acetaminophen Tab [Tylenol] 1,000 - 1,500 mg PO Q4-6H PRN 10/14/20 10/14/20 Happy Caps (Supplement) 1 cap PO DAILY 10/14/20 10/14/20 Previous Rx's Medication Instructions Recorded Lisinopril [Prinivil] 10 mg PO DAILY 30 Days #30 tab 10/07/20 Sulfamethox-Tmp 800-160Mg [Bactrim 1 each PO Q12HR #20 tab 10/07/20 Ds] Aspirin 81 mg PO DAILY #30 chew 10/16/20 Allergies Allergy/AdvReac Type Severity Reaction Status Date / Time No Known Allergies Allergy Verified 02/23/21 05:37 Review of Systems ROS Statement: Those systems with pertinent positive or pertinent negative responses have been documented in the HPI. ROS Other: All systems not noted in ROS Statement are negative. Past Medical History Past Medical History: Hypertension Additional Past Medical History / Comment(s): anemia, History of Any Multi-Drug Resistant Organisms: None Reported Past Surgical History: Section Past Anesthesia/Blood Transfusion Reactions: No Reported Reaction Past Psychological History: Anxiety, Depression Smoking Status: Never smoker Past Alcohol Use History: Occasional Past Drug Use History: None Reported - Past Family History Family Additional Family Medical History / Comment(s): Premature CAD Cousens from mother's side General Exam Limitations: no limitations General appearance: alert, in no apparent distress Head exam: Present: atraumatic, normocephalic, normal inspection Eye exam: Present: normal appearance, PERRL, EOMI. Absent: scleral icterus, conjunctival injection, periorbital swelling ENT exam: Present: normal exam, mucous membranes moist Neck exam: Present: normal inspection. Absent: tenderness, meningismus, lymphadenopathy Respiratory exam: Present: normal lung sounds bilaterally. Absent: respiratory distress, wheezes, rales, rhonchi, stridor Cardiovascular Exam: Present: regular rate, normal rhythm, normal heart sounds. Absent: systolic murmur, diastolic murmur, rubs, gallop, clicks GI/Abdominal exam: Present: soft, normal bowel sounds. Absent: distended, tenderness, guarding, rebound, rigid Extremities exam: Present: normal inspection, full ROM, normal capillary refill. Absent: tenderness, pedal edema, joint swelling, calf tenderness Back exam: Present: normal inspection Neurological exam: Present: alert, oriented X3, CN II-XII intact Psychiatric exam: Present: normal affect, normal mood Skin exam: Present: warm, dry, intact, normal color. Absent: rash Course Vital Signs 02/23/21 02/23/21 02/23/21 05:37 06:34 07:01 Temperature 97.9 F Pulse Rate 92 83 98 Respiratory 16 18 18 Rate Blood Pressure 117/84 135/88 124/75 O2 Sat by Pulse 100 97 100 Oximetry 02/23/21 08:10 Temperature 97.9 F Pulse Rate 82 Respiratory 18 Rate Blood Pressure 115/73 O2 Sat by Pulse 100 Oximetry - Reevaluation(s) Reevaluation #1: 02/23/21 05:44 medical record is reviewed Reevaluation #2: patient symptoms are improved Patient informed of results and questions answered Medical Decision Making - Medical Decision Making 50 female Jose Manuel with fever weakness nausea vomiting positive for urinary tract infection. Patient placed on antibiotics able tolerate oral intake and can be discharged home - Lab Data Result diagrams: 02/23/21 06:00 02/23/21 06:00 Lab Results 02/23/21 02/23/21 02/23/21 Range/Units 06:00 06:00 06:00 WBC 6.0 (3.8-10.6) k/uL RBC 4.65 (3.80-5.40) m/uL Hgb 13.3 (11.4-16.0) gm/dL Hct 39.6 (34.0-46.0) % MCV 85.1 (80.0-100.0) fL MCH 28.6 (25.0-35.0) pg MCHC 33.6 (31.0-37.0) g/dL RDW 13.7 (11.5-15.5) % Plt Count 161 (150-450) k/uL MPV 6.8 Neutrophils % 87 % Lymphocytes % 5 % Monocytes % 2 % Eosinophils % 4 % Basophils % 0 % Neutrophils # 5.2 (1.3-7.7) k/uL Lymphocytes # 0.3 L (1.0-4.8) k/uL Monocytes # 0.1 (0-1.0) k/uL Eosinophils # 0.2 (0-0.7) k/uL Basophils # 0.0 (0-0.2) k/uL PT 11.5 (9.0-12.0) sec INR 1.1 (<1.2) APTT 26.3 (22.0-30.0) sec Sodium 132 L (137-145) mmol/L Potassium 3.1 L (3.5-5.1) mmol/L Chloride 102 (98-107) mmol/L Carbon Dioxide 23 (22-30) mmol/L Anion Gap 7 mmol/L BUN 16 (7-17) mg/dL Creatinine 1.20 H (0.52-1.04) mg/dL Est GFR (CKD-EPI)AfAm 62 (>60 ml/min/1.73 sqM) Est GFR (CKD-EPI)NonAf 54 (>60 ml/min/1.73 sqM) Glucose 102 H (74-99) mg/dL Calcium 9.1 (8.4-10.2) mg/dL Magnesium 1.7 (1.6-2.3) mg/dL Total Bilirubin 0.6 (0.2-1.3) mg/dL AST 33 (14-36) U/L ALT 38 H (4-34) U/L Alkaline Phosphatase 84 (38-126) U/L Lactate Dehydrogenase 393 (313-618) U/L Troponin I (0.000-0.034) ng/mL C-Reactive Protein 12.1 H (<1.0) mg/dL Total Protein 6.9 (6.3-8.2) g/dL Albumin 3.4 L (3.5-5.0) g/dL Procalcitonin (0.02-0.09) ng/mL Urine Color Urine Appearance (Clear) Urine pH (5.0-8.0) Ur Specific Carver (1.001-1.035) Urine Protein (Negative) Urine Glucose (UA) (Negative) Urine Ketones (Negative) Urine Blood (Negative) Urine Nitrite (Negative) Urine Bilirubin (Negative) Urine Urobilinogen (<2.0) mg/dL Ur Leukocyte Esterase (Negative) Coronavirus (PCR) (Not Detectd) 02/23/21 02/23/21 02/23/21 Range/Units 06:00 06:00 06:00 WBC (3.8-10.6) k/uL RBC (3.80-5.40) m/uL Hgb (11.4-16.0) gm/dL Hct (34.0-46.0) % MCV (80.0-100.0) fL MCH (25.0-35.0) pg MCHC (31.0-37.0) g/dL RDW (11.5-15.5) % Plt Count (150-450) k/uL MPV Neutrophils % % Lymphocytes % % Monocytes % % Eosinophils % % Basophils % % Neutrophils # (1.3-7.7) k/uL Lymphocytes # (1.0-4.8) k/uL Monocytes # (0-1.0) k/uL Eosinophils # (0-0.7) k/uL Basophils # (0-0.2) k/uL PT (9.0-12.0) sec INR (<1.2) APTT (22.0-30.0) sec Sodium (137-145) mmol/L Potassium (3.5-5.1) mmol/L Chloride (98-107) mmol/L Carbon Dioxide (22-30) mmol/L Anion Gap mmol/L BUN (7-17) mg/dL Creatinine (0.52-1.04) mg/dL Est GFR (CKD-EPI)AfAm (>60 ml/min/1.73 sqM) Est GFR (CKD-EPI)NonAf (>60 ml/min/1.73 sqM) Glucose (74-99) mg/dL Calcium (8.4-10.2) mg/dL Magnesium (1.6-2.3) mg/dL Total Bilirubin (0.2-1.3) mg/dL AST (14-36) U/L ALT (4-34) U/L Alkaline Phosphatase (38-126) U/L Lactate Dehydrogenase (313-618) U/L Troponin I <0.012 (0.000-0.034) ng/mL C-Reactive Protein (<1.0) mg/dL Total Protein (6.3-8.2) g/dL Albumin (3.5-5.0) g/dL Procalcitonin 1.72 H (0.02-0.09) ng/mL Urine Color Urine Appearance (Clear) Urine pH (5.0-8.0) Ur Specific Carver (1.001-1.035) Urine Protein (Negative) Urine Glucose (UA) (Negative) Urine Ketones (Negative) Urine Blood (Negative) Urine Nitrite (Negative) Urine Bilirubin (Negative) Urine Urobilinogen (<2.0) mg/dL Ur Leukocyte Esterase (Negative) Coronavirus (PCR) Not Detected (Not Detectd) 02/23/21 Range/Units 07:05 WBC (3.8-10.6) k/uL RBC (3.80-5.40) m/uL Hgb (11.4-16.0) gm/dL Hct (34.0-46.0) % MCV (80.0-100.0) fL MCH (25.0-35.0) pg MCHC (31.0-37.0) g/dL RDW (11.5-15.5) % Plt Count (150-450) k/uL MPV Neutrophils % % Lymphocytes % % Monocytes % % Eosinophils % % Basophils % % Neutrophils # (1.3-7.7) k/uL Lymphocytes # (1.0-4.8) k/uL Monocytes # (0-1.0) k/uL Eosinophils # (0-0.7) k/uL Basophils # (0-0.2) k/uL PT (9.0-12.0) sec INR (<1.2) APTT (22.0-30.0) sec Sodium (137-145) mmol/L Potassium (3.5-5.1) mmol/L Chloride (98-107) mmol/L Carbon Dioxide (22-30) mmol/L Anion Gap mmol/L BUN (7-17) mg/dL Creatinine (0.52-1.04) mg/dL Est GFR (CKD-EPI)AfAm (>60 ml/min/1.73 sqM) Est GFR (CKD-EPI)NonAf (>60 ml/min/1.73 sqM) Glucose (74-99) mg/dL Calcium (8.4-10.2) mg/dL Magnesium (1.6-2.3) mg/dL Total Bilirubin (0.2-1.3) mg/dL AST (14-36) U/L ALT (4-34) U/L Alkaline Phosphatase (38-126) U/L Lactate Dehydrogenase (313-618) U/L Troponin I (0.000-0.034) ng/mL C-Reactive Protein (<1.0) mg/dL Total Protein (6.3-8.2) g/dL Albumin (3.5-5.0) g/dL Procalcitonin (0.02-0.09) ng/mL Urine Color Light Yellow Urine Appearance Clear (Clear) Urine pH 5.5 (5.0-8.0) Ur Specific Carver 1.006 (1.001-1.035) Urine Protein Negative (Negative) Urine Glucose (UA) Negative (Negative) Urine Ketones Negative (Negative) Urine Blood Negative (Negative) Urine Nitrite Negative (Negative) Urine Bilirubin Negative (Negative) Urine Urobilinogen <2.0 (<2.0) mg/dL Ur Leukocyte Esterase Negative (Negative) Coronavirus (PCR) (Not Detectd) - EKG Data -: EKG Interpreted by Me (EKG shows sinus a 91 NC 166 QRS 78 QTc 466) Disposition Clinical Impression: Dehydration, Gastroenteritis, UTI (urinary tract infection), Fever Disposition: HOME SELF-CARE Condition: Good Instructions (If sedation given, give patient instructions): Urinary Tract Infection in Women (ED), Fever in Adults (ED), Acute Nausea and Vomiting (ED) Is patient prescribed a controlled substance at d/c from ED?: No Referrals: Linda Colbert DO [Primary Care Provider] - 1-2 days
[2021-02-23 06:23] LABS: Basophils % (A) 0 %; Eosinophils # (A) 0.2 k/uL (0-0.7); Eosinophils % (A) 4 %; HCT 39.6 % (34.0-46.0); HGB 13.3 gm/dL (11.4-16.0); Lymphocytes # (A) 0.3 k/uL (1.0-4.8); Lymphocytes % (A) 5 %; MCH 28.6 pg (25.0-35.0); MCHC 33.6 g/dL (31.0-37.0); MCV 85.1 fL (80.0-100.0); Mean Platelet Volume 6.8; Monocytes # (A) 0.1 k/uL (0-1.0); Monocytes % (A) 2 %; Neutrophils # (A) 5.2 k/uL (1.3-7.7); Neutrophils % (A) 87 %; Platelet Count 161 k/uL (150-450); RBC 4.65 m/uL (3.80-5.40); RDW 13.7 % (11.5-15.5)
[2021-02-23 06:33] LABS: Albumin 3.4 g/dL (3.5-5.0); Calcium 9.1 mg/dL (8.4-10.2); Magnesium 1.7 mg/dL (1.6-2.3); Potassium 3.1 mmol/L (3.5-5.1); Total Bilirubin 0.6 mg/dL (0.2-1.3); Total Protein 6.9 g/dL (6.3-8.2)
[2021-02-23] MEDS ORDERED: POTASSIUM BICARBONATE/CIT AC 20 MEQ TABLET.EFF PO ONE (06:39)
[2021-02-23 06:42] VITALS: RESP 18
[2021-02-23 06:43] LABS: INR 1.1 (<1.2); Partial Thromboplastin Time 26.3 sec (22.0-30.0); Prothrombin Time 11.5 sec (9.0-12.0)
[2021-02-23] MEDS ORDERED: cefTRIAXone IN SWFI 1,000 MG/10 ML SYRINGE IVP STA (07:04)
[2021-02-23] MEDS ORDERED: ONDANSETRON 4 MG ODT STARTER PACK 2 TAB BTL PO STA (07:05)
[2021-02-23] MEDS ORDERED: IBUPROFEN 600 MG STARTER PACK 4 TAB BTL PO STA (07:05)
[2021-02-23 07:34] LABS: Appearance,Urine Clear (Clear); Bilirubin,Urine Negative (Negative); Blood,Urine Negative (Negative); Color,Urine Light Yellow; Glucose,Urine (UA) Negative (Negative); Ketones,Urine Negative (Negative); Leukocyte Esterase,Urine Negative (Negative); Nitrite,Urine Negative (Negative); PH, Urine 5.5 (5.0-8.0); Protein,Urine Negative (Negative); Specific Gravity,Urine 1.006 (1.001-1.035); Urobilinogen,Urine <2.0 mg/dL (<2.0)
[2021-02-23 07:58] LABS: C Reactive Protein 12.1 mg/dL (<1.0)
[2021-02-23 08:12] VITALS: BP 115/73; PULSE 82
== END 2021-02-23 08:12 | disposition home or self-care (01) ==
LOC: EC 05:28
DX: K52.9 Noninfective gastroenteritis and colitis, unspecified (principal); E86.0 Dehydration; N39.0 Urinary tract infection, site not specified; I10 Essential (primary) hypertension; Z20.822 Contact with and (suspected) exposure to COVID-19; Z79.899 Other long term (current) drug therapy
CPT/HCPCS: 36415; 93005; 80053; 83615; 83735; 84484; 85025; 85610; 85730; 86140; 81003; 84145; 87635; 99285; 96374; 96375; 96361; J2405; J0696; J1885; S0119

== ENCOUNTER 2023-05-27 18:36 | Observation (INO) | payer BC, OTHER ==
[2023-05-27 18:42] LABS: Glucose,Whole Blood 93 mg/dL (70-110)
--- NOTE | 2023-05-27 18:42 | ED ---
General Adult HPI - General Stated complaint: Stroke Time Seen by Provider: 05/27/23 18:40 Source: patient, EMS, RN notes reviewed, old records reviewed Mode of arrival: EMS Limitations: no limitations - History of Present Illness Initial comments: Patient is a pleasant 53-year-old female present to the emergency department with concern for stroke. Onset of symptoms was around a half an hour prior to arrival. Patient had difficulty finding words and slurred speech. Patient also had paresthesia of her right arm. Patient states symptoms have improved and are near resolved. No history of similar symptoms previously. Patient had mild blurry vision. Patient denies any weakness. - Related Data Home Medications Medication Instructions Recorded Confirmed Citalopram Hydrobromide [CeleXA] 40 mg PO HS 02/27/14 05/27/23 Aspirin 81 mg PO ONETIME 05/27/23 05/27/23 lisinopriL [Prinivil] 10 mg PO HS 05/27/23 05/27/23 Allergies Allergy/AdvReac Type Severity Reaction Status Date / Time No Known Allergies Allergy Verified 05/27/23 19:21 Review of Systems ROS Statement: Those systems with pertinent positive or pertinent negative responses have been documented in the HPI. ROS Other: All systems not noted in ROS Statement are negative. Constitutional: Denies: fever Respiratory: Denies: dyspnea Cardiovascular: Denies: chest pain Musculoskeletal: Denies: back pain Neurological: Denies: headache, weakness Past Medical History Past Medical History: Hypertension Additional Past Medical History / Comment(s): anemia, History of Any Multi-Drug Resistant Organisms: None Reported Past Surgical History: Section Past Anesthesia/Blood Transfusion Reactions: No Reported Reaction Past Psychological History: Anxiety, Depression Smoking Status: Never smoker Past Alcohol Use History: Occasional Past Drug Use History: None Reported - Past Family History Family Additional Family Medical History / Comment(s): Premature CAD Cousens from mother's side General Exam Limitations: no limitations General appearance: alert, in no apparent distress Head exam: Present: atraumatic, normocephalic Eye exam: Present: normal appearance, PERRL, EOMI ENT exam: Present: normal oropharynx Neck exam: Present: normal inspection Respiratory exam: Present: normal lung sounds bilaterally Cardiovascular Exam: Present: regular rate, normal rhythm Expanded Peripheral pulses: 2+: Radial (R), Radial (L), Dorsalis Pedis (R), Dorsalis Pedis (L) GI/Abdominal exam: Present: soft. Absent: tenderness Extremities exam: Present: normal inspection. Absent: pedal edema, calf tenderness Neurological exam: Present: alert, oriented X3, CN II-XII intact. Absent: motor sensory deficit Expanded Neurological exam: Present: protecting the airway Patient oriented to: Present: person, place, time Speech: Present: fluid speech Cranial nerves: EOM's Intact: Normal, Facial Sensation: Normal Sensory exam: Upper Extremity Light Touch: Normal, Lower Extremity Light Touch: Normal Motor strength exam: RUE: 5, LUE: 5, RLE: 5, LLE: 5 Eye Response: (4) open spontaneously Motor Response: (6) obeys commands Verbal Response: (5) oriented Psychiatric exam: Present: normal affect, normal mood Skin exam: Present: normal color Course Vital Signs 05/27/23 05/27/23 05/27/23 18:37 18:45 19:00 Temperature 98.7 F Pulse Rate 87 88 79 Respiratory 16 16 16 Rate Blood Pressure 188/121 176/118 180/107 O2 Sat by Pulse 100 100 100 Oximetry - Reevaluation(s) Reevaluation #1: 05/27/23 18:53 Case was discussed with Dr. Kevan Myers who agrees patient is not a tPA candidate. Patient is symptom-free at this time and risks outweigh the benefit. EKG Findings - EKG Results: EKG: interpreted by ERMD, sinus rhythm, normal axis, normal QRS, normal ST/T Medical Decision Making - Medical Decision Making Was pt. sent in by a medical professional or institution (, PA, HELICOPTER SPECIALIST, urgent care, hospital, or longterm...) When possible be specific @ -No Did you speak to anyone other than the patient for history (EMS, parent, family, police, friend...)? What history was obtained from this source @ -Family is present and helps provide history including symptoms and speech problems Did you review nursing and triage notes (agree or disagree)? Why? @ -I reviewed and agree with nursing and triage notes Were old charts reviewed (outside hosp., previous admission, EMS record, old EKG, old radiological studies, urgent care reports/EKG's, longterm records)? Report findings @ -Previous chest x-ray reviewed Differential Diagnosis (chest pain, altered mental status, abdominal pain women, abdominal pain men, vaginal bleeding, weakness, fever, dyspnea, syncope, headache, dizziness, GI bleed, back pain, seizure, CVA, palpatations, mental health, musculoskeletal)? @ -Differential Weakness: Hypoglycemia, shock, sepsis, hyponatremia, anemia, infection, SD, ETOH, adverse medicine reaction, overdose, stroke, this is not meant to be an all-inclusive list. EKG interpreted by me (3pts min.). @ -As above X-rays interpreted by me (1pt min.). @ -Chest x-ray shows no acute process CT interpreted by me (1pt min.). @ -CT brain without acute process U/S interpreted by me (1pt. min.). @ -None done What testing was considered but not performed or refused? (CT, X-rays, U/S, labs)? Why? @ -None What meds were considered but not given or refused? Why? @ -None Did you discuss the management of the patient with other professionals (professionals i.e. , PA, HELICOPTER SPECIALIST, lab, RT, psych nurse, social psychologist, swing tender, teacher, information systems security officer, manager case management)? Give summary @ -Case was discussed with Dr. Moncada, who will admit covering hospital Was smoking cessation discussed for >3mins.? @ -No Was critical care preformed (if so, how long)? @ -No Were there social determinants of health that impacted care today? How? (H omelessness, low income, unemployed, alcoholism, drug addiction, transportation, low edu. Level, literacy, decrease access to med. care, nursing home, rehab)? @ -No Was there de-escalation of care discussed even if they declined (Discuss DNR or withdrawal of care, Hospice)? DNR status @ -No What co-morbidities impacted this encounter? (DM, HTN, Smoking, COPD, CAD, Cancer, CVA, ARF, Chemo, Hep., AIDS, mental health diagnosis, sleep apnea, morbid obesity)? @ -None Was patient admitted / discharged? Hospital course, mention meds given and route, prescriptions, significant lab abnormalities, going to OR and other pertinent info. @ -Patient reevaluated and remains symptom-free. Patient and family are updated on results and plan. Patient does have some hypertension which will need to be addressed. Patient does have mild changes with hemoglobin and white blood cells which will need to be reevaluated. Patient updated regarding this. Patient will be admitted with neurology consult for TIA. Admission orders written. Undiagnosed new problem with uncertain prognosis? @ -No Drug Therapy requiring intensive monitoring for toxicity (Heparin, Nitro, Insulin, Cardizem)? @ -No Were any procedures done? @ -No Diagnosis/symptom? @ -TIA Acute, or Chronic, or Acute on Chronic? @ -Acute Uncomplicated (without systemic symptoms) or Complicated (systemic symptoms)? @ -Default Side effects of treatment? @ -No Exacerbation, Progression, or Severe Exacerbation? @ -No Poses a threat to life or bodily function? How? (Chest pain, USA, SD, pneumonia, PE, COPD, DKA, ARF, appy, cholecystitis, CVA, Diverticulitis, Homicidal, Suicidal, threat to staff... and all critical care pts) @ -No - Lab Data Result diagrams: 05/27/23 18:45 05/27/23 18:45 Lab Results 05/27/23 05/27/23 05/27/23 Range/Units 18:41 18:45 18:45 WBC 3.4 L (3.8-10.6) k/uL RBC 4.17 (3.80-5.40) m/uL Hgb 9.7 L (11.4-16.0) gm/dL Hct 30.7 L (34.0-46.0) % MCV 73.6 L (80.0-100.0) fL MCH 23.2 L (25.0-35.0) pg MCHC 31.6 (31.0-37.0) g/dL RDW 16.0 H (11.5-15.5) % Plt Count 172 (150-450) k/uL MPV 6.9 Hypochromasia Marked Microcytosis Slight PT 10.0 (10.0-12.5) sec INR 0.9 (<1.2) APTT 21.9 L (22.0-30.0) sec Sodium (137-145) mmol/L Potassium (3.5-5.1) mmol/L Chloride (98-107) mmol/L Carbon Dioxide (22-30) mmol/L Anion Gap mmol/L BUN (7-17) mg/dL Creatinine (0.52-1.04) mg/dL Est GFR (CKD-EPI)AfAm (>60 ml/min/1.73 sqM) Est GFR (CKD-EPI)NonAf (>60 ml/min/1.73 sqM) Glucose (74-99) mg/dL POC Glucose (mg/dL) 93 (70-110) mg/dL POC Glu Bankruptcy Law Specialist ID Edwards, Ilia Calcium (8.4-10.2) mg/dL Total Bilirubin (0.2-1.3) mg/dL AST (14-36) U/L ALT (4-34) U/L Alkaline Phosphatase (38-126) U/L Creatine Kinase (30-135) U/L Total Protein (6.3-8.2) g/dL Albumin (3.5-5.0) g/dL 05/27/23 Range/Units 18:45 WBC (3.8-10.6) k/uL RBC (3.80-5.40) m/uL Hgb (11.4-16.0) gm/dL Hct (34.0-46.0) % MCV (80.0-100.0) fL MCH (25.0-35.0) pg MCHC (31.0-37.0) g/dL RDW (11.5-15.5) % Plt Count (150-450) k/uL MPV Hypochromasia Microcytosis PT (10.0-12.5) sec INR (<1.2) APTT (22.0-30.0) sec Sodium 137 (137-145) mmol/L Potassium 3.5 (3.5-5.1) mmol/L Chloride 109 H (98-107) mmol/L Carbon Dioxide 23 (22-30) mmol/L Anion Gap 5 mmol/L BUN 9 (7-17) mg/dL Creatinine 0.65 (0.52-1.04) mg/dL Est GFR (CKD-EPI)AfAm >90 (>60 ml/min/1.73 sqM) Est GFR (CKD-EPI)NonAf >90 (>60 ml/min/1.73 sqM) Glucose 92 (74-99) mg/dL POC Glucose (mg/dL) (70-110) mg/dL POC Glu Bankruptcy Law Specialist ID Calcium 8.7 (8.4-10.2) mg/dL Total Bilirubin 0.4 (0.2-1.3) mg/dL AST 31 (14-36) U/L ALT 21 (4-34) U/L Alkaline Phosphatase 74 (38-126) U/L Creatine Kinase 36 (30-135) U/L Total Protein 8.2 (6.3-8.2) g/dL Albumin 4.2 (3.5-5.0) g/dL Disposition Clinical Impression: Transient cerebral ischemia Disposition: ADMITTED IP TO THIS HOSP Is patient prescribed a controlled substance at d/c from ED?: No Referrals: Linda Colbert DO [Primary Care Provider] - 1-2 days Time of Disposition: 19:39
[2023-05-27 18:52] LABS: HCT 30.7 % (34.0-46.0); HGB 9.7 gm/dL (11.4-16.0); Hypochromasia Marked; MCH 23.2 pg (25.0-35.0); MCHC 31.6 g/dL (31.0-37.0); MCV 73.6 fL (80.0-100.0); Mean Platelet Volume 6.9; Microcytosis Slight; Platelet Count 172 k/uL (150-450); RBC 4.17 m/uL (3.80-5.40); WBC 3.4 k/uL (3.8-10.6)
--- NOTE | 2023-05-27 19:05 | CT ---
EXAMINATION TYPE: CT brain wo con CT DLP: 1105.6 mGycm, Automated exposure control for dose reduction was used. DATE OF EXAM: 05/27/2023 6:56 PM COMPARISON: None. CLINICAL INDICATION:Female, 53 years old with history of Neuro deficit, acute, stroke suspected, Code stroke. TECHNIQUE: Brain: Axial CT images of the brain were obtained with coronal and sagittal reformats created and rev iewed. Contrast used: None. Oral contrast used: None. FINDINGS: Brain: Extra-axial spaces: No abnormal extra-axial fluid collections. Ventricular system: Within normal limits Cerebral parenchyma: No acute intraparenchymal hemorrhage or mass effect. Scattered areas of hypoatt enuation identified, most notably within the right mccoy radiata and centrum semiovale, no evidence of loss of the chapin-white junction is identified.. Cerebellum: Suspected remote left cerebellum hemisphere infarct. Mass effect: No evidence of midline shift. Intracranial vasculature: Atherosclerotic calcifications of the intracranial vessels. Soft tissues: Normal. Calvarium/osseous structures: No depressed skull fracture. Paranasal sinuses and mastoid air cells: Mild scattered paranasal sinus disease. Visualized orbits: Orbital contents are intact. IMPRESSION: Scattered nonspecific areas of hypoattenuation, most likely related to chronic ischemic small vessel disease. No evidence to suggest acute hemorrhage. If clinical concern for ischemia, consider dedicate d MRI of the brain.
[2023-05-27 19:06] LABS: ALT 21 U/L (4-34); AST 31 U/L (14-36); African American GFR (CKD) >90 (>60 ml/min/1.73 sqM); Albumin 4.2 g/dL (3.5-5.0); Alkaline Phosphatase 74 U/L (38-126); Anion Gap 5 mmol/L; Blood Urea Nitrogen 9 mg/dL (7-17); Calcium 8.7 mg/dL (8.4-10.2); Carbon Dioxide 23 mmol/L (22-30); Chloride 109 mmol/L (98-107); Creatine Kinase 36 U/L (30-135); Glucose 92 mg/dL (74-99); Non-African American GFR(CKD) >90 (>60 ml/min/1.73 sqM); Potassium 3.5 mmol/L (3.5-5.1); Sodium 137 mmol/L (137-145); Total Bilirubin 0.4 mg/dL (0.2-1.3); Total Protein 8.2 g/dL (6.3-8.2)
--- NOTE | 2023-05-27 19:10 | XR ---
EXAMINATION TYPE: XR chest 2V DATE OF EXAM: 05/27/2023 7:06 PM CLINICAL INDICATION:Female, 53 years old with history of altered mental status; . COMPARISON: Chest radiograph 10/14/2020 TECHNIQUE: XR chest 2V Frontal and lateral views of the chest. FINDINGS: Lungs/Pleura: There is no evidence of pleural effusion, focal consolidation, or pneumothorax. Pulmonary vascularity: Unremarkable. Heart/mediastinum: Cardiomediastinal silhouette is unremarkable. Musculoskeletal: No acute osseous pathology. IMPRESSION: No acute cardiopulmonary disease/process.
[2023-05-27 19:15] LABS: INR 0.9 (<1.2); Partial Thromboplastin Time 21.9 sec (22.0-30.0)
--- NOTE | 2023-05-27 19:24 | CT ---
EXAMINATION TYPE: CT angio head neck CT DLP: 459.9 mGycm, Automated exposure control for dose reduction was used. DATE OF EXAM: 05/27/2023 7:13 PM COMPARISON: No prior. CLINICAL INDICATION:Female, 53 years old with history of Neuro deficit, acute, stroke suspected; PHH, Code stroke TECHNIQUE: Axially acquired helical CT angiogram of the head and neck was obtained with contrast. Axi al images are supplemented with 3D reconstructions [facility] NASCET criteria used. Contrast used:65 cc mL of Isovue 370 with IV Contrast, Oral contrast used: None. FINDINGS: CTA HEAD: The visualized portions of the internal carotid arteries, middle cerebral arteries, anterior cerebral arteries, and posterior cerebral arteries are patent. Moderate multifocal stenoses of the distal A2/A3 segments on the right. Moderate multifocal stenosis of the left M2/M3 segments The basilar and vertebral arteries are patent. CTA NECK: Right Carotid System: The common carotid artery and external carotid artery are patent. The carotid bifurcation demonstrate s no evidence of hemodynamically significant stenosis. The remaining portions of the internal carotid artery demonstrate normal size without significant narrowing. Left Carotid System: The common carotid artery and external carotid artery are patent. The carotid bifurcation demonstrate s no evidence of hemodynamically significant stenosis. The remaining portions of the internal carotid artery demonstrate normal size without significant narrowing. Vertebral arteries are patent without evidence hemodynamically significant stenosis. There is a three-vessel aortic arch. The origins of the great vessels are patent. No evidence of hemo dynamically significant stenosis. Upper thorax: Unremarkable IMPRESSION: 1. No evidence of dissection of the cervical internal carotid arteries or vertebral arteries or any e vidence of significant stenosis at the carotid bifurcations. 2. No evidence of intracranial high-grade stenosis or intracranial aneurysm. 3. Mild to moderate multifocal stenoses of the right A2/A3 segments of anterior cerebral artery and M 2/M3 segments of the left middle cerebral artery.
[2023-05-27] MEDS: SODIUM CHLORIDE 0.9% 1,000 ML IV SCH (19:46)
[2023-05-27] MEDS: ASPIRIN 325 MG TAB PO STA (19:46)
[2023-05-27 20:18] LABS: Lymphocytes # (M) 0.95 k/uL (1.0-4.8); Neutrophils # (M) 2.14 k/uL (1.3-7.7); Neutrophils % (M) 63 %; Nucleated Red Blood Cells 0 /100 WBC (0-0); Total Cells Counted 100
[2023-05-27 20:19] LABS: Hypochromasia (M) Present; Reactive Lymphocytes Present
--- NOTE | 2023-05-28 03:54 | P.HPIM ---
History of Present Illness H&P Date: 05/27/23 Chief Complaint: Expressive aphasia 53-year-old female with hypertension Patient coming in complaining of expressive aphasia she reports that she was on a meeting and was having difficulty finding words to the point that she was asking her school-age son for the correct expression of common words that she uses. 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 She recognize she has a problem she decided to take an aspirin noticed that she is having right upper extremity numbness for which she notified EMS to bring her to the hospital upon evaluation they found that her blood pressure was elevated she was brought into the hospital as a code stroke. Patient reports that her symptoms has completely resolved after about 15 minutes denies any history of stroke denies any recent history of travel or hospital stay denies any history of blood clots. Denies any falling or head injury Patient reports that she feels back to normal at this point. Stroke workup was done in the ED no acute intracranial lesions. CT angio of the head and neck showed mild to moderate multifocal stenosis. Her blood pressure continues to be elevated Patient denies tobacco smoking or illicit drugs she does admit to 1 or 2 alcoholic beverages every other day review of systems Pertinent positives as noted in HPI. All other systems were reviewed and are negative on exam Constitutional: No acute distress, conversant, pleasant Eyes: Anicteric sclerae, moist conjunctiva, Pupils equal round reactive to light ENMT: NC/AT Oropharynx clear, no erythema, or exudates Neck: Supple, no masses, or JVD No carotid bruits No thyromegaly Lungs: Clear to auscultation Clear to percussion Normal respiratory effort, no accessory muscle use Cardiovascular: Heart regular in rate and rhythm, No murmurs, gallops, or rubs No peripheral edema Abdominal: Soft Nontender, no guarding, rebound or rigidity Abdomen moving with respiration Normoactive bowel sounds No hepatomegaly, No splenomegaly No palpable mass No abdominal wall hernia noted Extremities: No digital cyanosis No clubbing Pedal pulses intact and symmetrical Radial pulses intact and symmetrical No calf tenderness Psychiatric: Alert and oriented to person, place and time Appropriate affect fair judgement Neuro Muscles Strength 5/5 in all 4 extremities Sensation to light touch grossly present throughout Cranial nerves II-XII grossly intact Finger-nose exam intact heel mendez exam intact no dysdiadochokinesis Past Medical History Past Medical History: Hypertension Additional Past Medical History / Comment(s): anemia, History of Any Multi-Drug Resistant Organisms: None Reported Past Surgical History: Section Past Anesthesia/Blood Transfusion Reactions: No Reported Reaction Past Psychological History: Anxiety, Depression Smoking Status: Never smoker Past Alcohol Use History: Occasional Past Drug Use History: None Reported - Past Family History Family Additional Family Medical History / Comment(s): Premature CAD Cousens from mother's side Medications and Allergies Home Medications Medication Instructions Recorded Confirmed Type Citalopram Hydrobromide [CeleXA] 40 mg PO HS 02/27/14 05/27/23 History Aspirin 81 mg PO ONETIME 05/27/23 05/27/23 History lisinopriL [Prinivil] 10 mg PO HS 05/27/23 05/27/23 History Allergies Allergy/AdvReac Type Severity Reaction Status Date / Time No Known Allergies Allergy Verified 05/27/23 19:21 Physical Exam Vitals: Vital Signs Temp Pulse Resp BP Pulse Ox 05/27/23 22:15 75 17 170/117 98 05/27/23 22:00 78 16 178/113 100 05/27/23 21:45 75 17 174/112 99 05/27/23 21:30 75 18 161/109 99 05/27/23 21:15 76 17 175/108 100 05/27/23 21:00 73 17 188/119 100 05/27/23 20:45 75 17 179/126 99 05/27/23 20:30 77 16 185/111 99 05/27/23 20:00 78 12 183/118 100 05/27/23 19:47 80 22 183/118 97 05/27/23 19:00 79 16 180/107 100 05/27/23 18:45 88 16 176/118 100 05/27/23 18:37 98.7 F 87 16 188/121 100 Intake and Output 05/27/23 05/27/23 05/28/23 14:59 22:59 06:59 Other: Weight 81.647 kg Results CBC & Chem 7: 05/27/23 18:45 05/27/23 18:45 Labs: Abnormal Lab Results - Last 24 Hours (Table) 05/27/23 05/27/23 05/27/23 Range/Units 18:45 18:45 18:45 WBC 3.4 L (3.8-10.6) k/uL Hgb 9.7 L (11.4-16.0) gm/dL Hct 30.7 L (34.0-46.0) % MCV 73.6 L (80.0-100.0) fL MCH 23.2 L (25.0-35.0) pg RDW 16.0 H (11.5-15.5) % Lymphocytes # (Manual) 0.95 L (1.0-4.8) k/uL APTT 21.9 L (22.0-30.0) sec Chloride 109 H (98-107) mmol/L Assessment and Plan Assessment: 53-year-old female with hypertension coming in with expressive aphasia and right upper extremity weakness I discussed case with ED doctor and accepted the admission for TIA with anticipated length of stay less than 2 midnights Transient ischemic attack Patient low risk for full-blown stroke within the next 90 days Continue with aspirin 81 mg p.o. daily Check lipid profile Check echocardiogram PT consultation Atorvastatin 40 mg p.o. daily Neurology consult CT of the brain without contrast no acute intracranial pathology CT angio of the head and neck showed no significant carotid stenosis, however did show mild to moderate multifocal stenosis Hypertension uncontrolled Resume lisinopril Continue to monitor and optimize blood pressure as an outpatient Microcytic anemia Patient does report heavy periods Initiate iron supplementation orally Renal function unremarkable sodium 137 potassium 3.5 BUN 9 creatinine 0.6 Full code DVT prophylaxis heparin subcu 3 times daily
[2023-05-28] MEDS: HEPARIN SODIUM,PORCINE 5,000 UNIT/ML 1 ML VIAL SQ SCH (08:07)
[2023-05-28] MEDS: ATORVASTATIN 40 MG TAB PO SCH (08:07)
[2023-05-28] MEDS: ASPIRIN 325 MG TAB PO SCH (08:07)
--- NOTE | 2023-05-28 11:27 | CA ---
Transthoracic Echo Report Name: Eva Edwards Age: 53 Gender: F : 1970 Exam Date: 05/28/2023 09:04 Exam Location: [facility] Ht (in): 67 Wt (lb): 180 Ordering Physician: Arjun Delgadillo DO Attending/Referring Phys: Primary Special Educator Antonio Benavides RDCS Procedure CPT: Indications: Thrombus Cardiac Hx: Technical Quality: Fair Contrast 1: Total Dose (mL): Contrast 2: Total Dose (mL): MEASUREMENTS (Male / Female) Normal Values 2D ECHO LV Diastolic Diameter PLAX 5.2 cm 4.2 - 5.9 / 3.9 - 5.3 cm LV Systolic Diameter PLAX 3.5 cm IVS Diastolic Thickness 0.8 cm 0.6 - 1.0 / 0.6 - 0.9 cm LVPW Diastolic Thickness 0.6 cm 0.6 - 1.0 / 0.6 - 0.9 cm LV Relative Wall Thickness 0.3 Aortic Root Diameter 3.4 cm LA Systolic Diameter LX 3.5 cm 3.0 - 4.0 / 2.7 - 3.8 cm DOPPLER AV Peak Velocity 162.0 cm/s AV Peak Gradient 10.5 mmHg LVOT Peak Velocity 82.4 cm/s LVOT Peak Gradient 2.7 mmHg Mitral E Point Velocity 94.5 cm/s Mitral A Point Velocity 79.4 cm/s Mitral E to A Ratio 1.2 MV Deceleration Time 264.9 ms PV Peak Velocity 91.0 cm/s PV Peak Gradient 3.3 mmHg FINDINGS Left Ventricle Left ventricular ejection fraction is estimated at 55-60 %.normal left ventricular wall motion. Left ventricular cavity size normal. Right Ventricle Normal right ventricular size and function. Right Atrium Right atrium not well visualized. Left Atrium Normal left atrial size. Mitral Valve Trace mitral regurgitation.structurally normal mitral valve. Aortic Valve Trileaflet aortic valve. No aortic valve stenosis or regurgitation. Tricuspid Valve Trace tricuspid regurgitation.structurally normal tricuspid valve. Pulmonic Valve Pulmonic valve not well visualized. Pericardium No pericardial effusion. Aorta Normal size aortic root and proximal ascending aorta. CONCLUSIONS 1. Normal left ventricular size and systolic function 2. Trace mitral and tricuspid regurgitation Previewed by: Dr. Kimberlyn Bond MD (Electronically Signed) Final Date: 28 May 2023 11:26
--- NOTE | 2023-05-28 11:58 | P.PN ---
Subjective Progress Note Date: 05/28/23 Hospital Course: 53-year-old female with history of hypertension, depression presenting with word finding difficulties, and right upper extremity weakness which lasted about 15 minutes. In the ED, blood pressure was 188/121, rest of the vital signs were otherwise within normal limits. Laboratory workup showed WBC 3.4, hemoglobin 9.7, MCV 73.6, platelet 172, creatinine 0.65, glucose 92. Head CT did not show any acute process, CTA head and neck showed no dissection, no high-grade stenosis or intracranial aneurysm, mild to moderate multifocal stenosis of the right anterior cerebral artery and M2/M3 segments of the left middle cerebral artery. Chest x-ray unremarkable, EKG shows normal sinus rhythm. Neurology consulted. Patient admitted for TIA. Subjective: Patient seen and examined at bedside. No acute events overnight. Pertinent positives and negatives as discussed above, a complete review of systems was performed and all other systems are negative. Vitals Signs Reviewed. General: Nontoxic, no distress, appears at stated age Derm: Warm, dry Head: Atraumatic, normocephalic, symmetric Eyes: EOMI, no lid lag, anicteric sclera Mouth: No lip lesion, mucus membranes moist Cardiovascular: S1S2 reg, no murmur Lungs: CTA bilateral, no rhonchi, no rales, no accessory muscle use Abdominal: Soft, nontender to palpation, no guarding, no appreciable organomegaly Ext: No gross muscle atrophy, no edema, no contractures Neuro: CN II-XI grossly intact, no focal neuro deficits Psych: Alert, oriented, appropriate affect Data Reviewed Today: Pertinent Labs: No new labs Imaging: Echocardiogram showed normal LV size and systolic function, trace mitral and tricuspid regurgitation. Assessment and Plan: Active: Transient ischemic attack Hypertension -Continue aspirin 81 mg, atorvastatin 40 mg -Lisinopril increased to 20 mg, repeat BMP tomorrow -Neurology consulted -TSH and A1c and lipid panel pending -PT/OT/speech therapy Microcytic anemia -Needs outpatient workup -Already on iron supplementation -Repeat CBC tomorrow Depression -Continue Celexa 40 DVT ppx: Subcu heparin Code status: Full code Anticipated discharge place: Pending clinical course Anticipated discharge time: Pending clinical course Objective - Vital Signs Vital signs: Vital Signs Temp 97.5 F L 05/28/23 07:30 Pulse 76 05/28/23 07:30 Resp 16 05/28/23 08:00 BP 146/97 05/28/23 07:30 Pulse Ox 100 05/28/23 07:30 FiO2 Intake & Output 05/27/23 05/28/23 05/28/23 18:59 06:59 18:59 Intake Total 236 Balance 236 Weight 81.647 kg 81.647 kg Intake: Oral 236 - Labs CBC & Chem 7: 05/27/23 18:45 05/27/23 18:45 Labs: Abnormal Lab Results - Last 24 Hours (Table) 05/27/23 05/27/23 05/27/23 Range/Units 18:45 18:45 18:45 WBC 3.4 L (3.8-10.6) k/uL Hgb 9.7 L (11.4-16.0) gm/dL Hct 30.7 L (34.0-46.0) % MCV 73.6 L (80.0-100.0) fL MCH 23.2 L (25.0-35.0) pg RDW 16.0 H (11.5-15.5) % Lymphocytes # (Manual) 0.95 L (1.0-4.8) k/uL APTT 21.9 L (22.0-30.0) sec Chloride 109 H (98-107) mmol/L
[2023-05-28] MEDS: IRON POLYSACCHARIDES COMPLEX 150 MG CAP PO SCH (13:14)
[2023-05-28 16:15] LABS: Chol/HDL Ratio 3.83 Ratio; LDL Cholesterol,Calculated 83.5 mg/dL (0.0-131.0)
[2023-05-28] MEDS: lisinopriL 20 MG TAB PO SCH (20:05)
[2023-05-28] MEDS: TICAGRELOR 90 MG TAB PO STA (20:05)
[2023-05-28] MEDS: CITALOPRAM HYDROBROMIDE 20 MG TAB PO SCH (20:05)
--- NOTE | 2023-05-28 20:06 | P.CNNES ---
History of Present Illness Consult date: 05/28/23 Requesting physician: Arjun Delgadillo Reason for Consult: TIA History of Present Illness: Patient is a 53-year-old right-handed female with history of hypertension, came to the hospital by ambulance yesterday at 6:36 PM for acute stroke symptoms. Patient states that yesterday at 6 PM she was working on her computer, doing online classes when she was trying to type something, and and she could not think of the right word. She wanted to write heartbreak, ended kept on coming as "break hurting". Her speech was slurred, and she felt some numbness and tingling of the right arm. Her vision became blurred, cloudy, like "dark and light" coming in the vision. Her son called EMS. Her symptoms mostly lasted for about 15 minutes. However while she was in the ambulance, she was still having difficulty with speaking sentences but has much improved. By the time she came to ER, all symptoms have resolved. At present she has no symptoms. She never had such symptoms before. As per EMS flowsheet, when they arrived, patient was sitting in the recliner, fully conscious, alert and oriented x 4, with GCS of 15. Patient was complaining of blurred vision and difficulty forming words and sentences. Pupils appeared to have slight preference towards the right gaze. No focal weakness. 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 Patient has mentioned that the numbness to her right arm has dissipated prior to EMS arrival. No previous history of stroke. Patient is only on aspirin that she takes as needed. Patient's vitals at the scene was blood [place] 208[place] [address] and then 215/114, pulse rate 87, respirations 16, saturation 100%, blood sugar 96 mg/dL. Blood pressure on arrival 188/121, temperature 98.7. Blood test shows WBC 3.4 hemoglobin 9.7, platelets are 172. PT PTT normal, basic metabolic panel normal. Hepatic panel normal. CT head revealed scattered nonspecific areas of hypoattenuation, most likely related to chronic ischemic small vessel disease. No evidence to suggest acute hemorrhage. Chest x-ray showed no acute card iopulmonary process. EKG with sinus rhythm. Patient home medications listed aspirin 81 mg, lisinopril 10 mg and Celexa 40 mg. Patient states that she was diagnosed with hypertension about 3 years ago, but started on medication a month ago. She took aspirin for a month before she started taking lisinopril. She has not been on any antiplatelet medication for last 1 month. Denies diabetes. Denies tobacco or alcohol. She drinks 1 to 2 cups of coffee per day. Review of Systems Constitutional: Denies chills, Denies fever Eyes: bilateral blurred vision (Now resolved.), denies diplopia, denies pain, denies loss of peripheral vision Ears: deny: decreased hearing, ear discharge Ears, nose, mouth and throat: Denies headache, Denies sore throat Cardiovascular: Denies chest pain, Denies shortness of breath Respiratory: Denies cough, Denies excessive sputum Gastrointestinal: Denies abdominal pain, Denies diarrhea, Denies nausea, Denies vomiting Integumentary: Denies pruritus, Denies rash Neurological: Reports as per HPI Endocrine: Denies fatigue, Denies palpitations Past Medical History Past Medical History: Hypertension Additional Past Medical History / Comment(s): anemia, History of Any Multi-Drug Resistant Organisms: None Reported Past Surgical History: Section Past Anesthesia/Blood Transfusion Reactions: No Reported Reaction Past Psychological History: Anxiety, Depression Smoking Status: Never smoker Past Alcohol Use History: Occasional Past Drug Use History: None Reported - Past Family History Family Additional Family Medical History / Comment(s): Premature CAD Cousens from mother's side Medications and Allergies Home Medications Medication Instructions Recorded Confirmed Type Citalopram Hydrobromide [CeleXA] 40 mg PO HS 02/27/14 05/27/23 History Aspirin 81 mg PO ONETIME 05/27/23 05/27/23 History lisinopriL [Prinivil] 10 mg PO HS 05/27/23 05/27/23 History Allergies Allergy/AdvReac Type Severity Reaction Status Date / Time No Known Allergies Allergy Verified 05/27/23 19:21 Physical Examination - Vital Signs Vital Signs: Vital Signs Temp Pulse Pulse Resp BP BP Pulse Ox 05/28/23 14:21 98.3 F 77 14 126/89 100 05/28/23 08:00 16 05/28/23 07:30 97.5 F L 76 16 146/97 100 05/28/23 06:00 70 14 168/111 98 05/28/23 05:00 72 13 151/109 98 05/28/23 04:00 71 16 171/115 99 05/28/23 03:00 70 15 139/93 100 05/28/23 02:00 76 16 151/93 05/28/23 01:00 74 16 145/96 05/28/23 00:17 69 13 161/101 05/28/23 00:00 74 15 163/107 99 05/27/23 23:00 71 16 161/102 100 05/27/23 22:15 75 17 170/117 98 05/27/23 22:00 78 16 178/113 100 05/27/23 21:45 75 17 174/112 99 05/27/23 21:30 75 18 161/109 99 05/27/23 21:15 76 17 175/108 100 05/27/23 21:00 73 17 188/119 100 05/27/23 20:45 75 17 179/126 99 05/27/23 20:30 77 16 185/111 99 05/27/23 20:00 78 12 183/118 100 05/27/23 19:47 80 22 183/118 97 05/27/23 19:00 79 16 180/107 100 05/27/23 18:45 88 16 176/118 100 05/27/23 18:37 98.7 F 87 16 188/121 100 Intake and Output 05/28/23 05/28/23 05/28/23 06:59 14:59 22:59 Intake Total 354 Balance 354 Intake: Oral 354 Other: # Voids 1 Weight 81.647 kg Patient is a middle aged female, very pleasant, no acute distress. Patient is alert awake oriented to time place and person. Speech and language functions are normal. Patient can name and repeat very well. No aphasia or dysarthria. Attention, concentration and fund of knowledge is adequate. On cranial nerve examination, pupils are equal, round and reacting to light, vis ual ritchie are full on confrontation, with no neglect on double simultaneous stimulation. Extraocular muscles are intact with no nystagmus. Face is symmetric, tongue protrudes to the midline. Palatal elevation and sensation normal, hearing and shoulder shrug normal, facial sensation normal. On muscle strength testing, there is no pronator drift and the strength is normal in arms and legs distally and proximally. Deep tendon reflexes are symmetric 1 in the arms and legs and plantars downgoing bilaterally. Sensory to touch is equal with no neglect on double simultaneous stimulation. Cerebellar function showed no ataxia for bobdty-in-[id number] testing. No dysdiadochokinesia. No ataxia for cylw-gb-[id number] testing on either side. Tone and bulk of muscles normal. Gait deferred.. On general examination, there is no carotid bruit or murmur, S1-S2 audible. Chest is clear on consultation. Abdomen is soft nontender. No organomegaly, bowel sounds present. Peripheral pulses are present. No peripheral edema. Results - Laboratory Findings CBC and BMP: 05/27/23 18:45 05/27/23 18:45 Abnormal Lab Findings: Abnormal Labs 05/27/23 05/27/23 05/27/23 18:45 18:45 18:45 WBC 3.4 L Hgb 9.7 L Hct 30.7 L MCV 73.6 L MCH 23.2 L RDW 16.0 H Lymphocytes # (Manual) 0.95 L APTT 21.9 L Chloride 109 H HDL Cholesterol 05/28/23 10:50 WBC Hgb Hct MCV MCH RDW Lymphocytes # (Manual) APTT Chloride HDL Cholesterol 37.10 L Assessment and Plan Assessment: * Probable TIA, manifesting with transient expressive aphasia, slurred speech, blurred vision and right arm tingling, that resolved in about 15 minutes. * Intracranial atherosclerotic disease noted on CTA. * Hypertensive urgency/accelerated hypertension * Mild dyslipidemia Plan: Patient has presented with stroke/TIA. All symptoms have resolved. Current NIH stroke scale is 0. Patient not a candidate for tPA. We will check MRI of the brain without contrast, evaluate for acute CVA 2-D echo revealed normal left ventricular size and systolic function. EF is 55 to 60%. Normal left ventricular wall motion. Normal left atrial size. Trace MR. CTA head and neck showed: No evidence of dissection of the cervical internal carotid arteries or vertebral arteries or any evidence of significant stenosis at the carotid bifurcations. No evidence of intracranial high-grade stenosis or intracranial aneurysm. Mild to moderate multifocal stenosis of the right A2/A3 segments of the anterior cerebral artery and M2/M3 segments of the left middle cerebral artery. Check MRA of the head for further evaluation of intracranial atherosclerotic disease. Patient may need referral to neurointervention to be followed as an outpatient. May need cerebral angiogram. Fasting a.m. lipid panel cholesterol 142, LDL 83, HDL 37, triglycerides 107. Start Lipitor 40 mg daily to target LDL <70. Hemoglobin A1c 5.3 Optimize control of blood pressure. Gradually bring blood pressure to normotens mckenzie level. Patient had a TIA. Patient was not taking any antiplatelet medication for last 30 days. Patient to be placed on Brilinta 180 mg x 1 dose and then 90 mg twice daily for 30 days. Patient will also be on aspirin 81 mg daily, that needs to be continued indefinitely. Neuro checks every 4 hours. Telemetry monitoring rule out any arrhythmia DVT prophylaxis: Heparin 5000 units subcu every 8 hours Neurology will continue to follow. Thank you for the consult.
[2023-05-28] MEDS ORDERED: lisinopriL 10 MG TAB PO SCH (21:00)
[2023-05-29 07:18] VITALS: BP 128/83; PULSE 65; RESP 16; TEMP 98
[2023-05-29] MEDS: ASPIRIN 81 MG PO SCH (08:02)
[2023-05-29] MEDS: TICAGRELOR 90 MG TAB PO SCH (08:02)
--- NOTE | 2023-05-29 11:03 | MR ---
EXAMINATION TYPE: MR brain wo con DATE OF EXAM: 05/29/2023 10:56 AM CLINICAL INDICATION:Female, 53 years old with history of Stroke/TIA; PHH, Episode of visual disturban ce and loss of words. COMPARISON: Same day MRI. TECHNIQUE: Multi planar, multi sequence imaging was performed through the brain including: T1, T2, In version recovery, Diffusion weighted imaging, and gradient echo imaging. No gadolinium was given. FINDINGS: The chapin-white junctions, ventricular system, basal cisterns appear unremarkable. Scattered foci of high T2 signal intensity are seen within the periventricular white matter. Midline structures show n o abnormality. Diffusion-weighted imaging shows no evidence of restricted diffusion. The susceptibili ty weighted images do not reveal any evidence for micro-hemorrhage. The bone marrow signal is within normal limits. Paranasal sinuses and mastoid air cells: No significant paranasal sinus disease. Visualized orbits: Orbital contents are intact. IMPRESSION: 1. No evidence of intracranial mass or acute/subacute infarct. 2. Nonspecific white matter changes, likely secondary to small vessel ischemic disease.
--- NOTE | 2023-05-29 11:05 | MR ---
EXAMINATION TYPE: MR angio head wo con DATE OF EXAM: 05/29/2023 10:56 AM CLINICAL INDICATION:Female, 53 years old with history of Intra cranial atherosclerosis; PHH, Episode of visual disturbance and loss of words. COMPARISON: Same day MRI Technical: 3-D [id number] Axial with MIP reconstruction created on a separate workstation.. IV Contrast: None Findings: Vertebral arteries: The vertebral arteries are patent. Vertebral arteries are: Codominant. Basilar artery: The basilar artery is intact. The basilar artery bifurcation is normal. Internal Carotid arteries: The cervical, petrous, cavernous and supraclinoid segments are normal. SAMINA: Patent with no evidence of aneurysm. ACOM: Present without evidence of aneurysm. MCA: Patent with no evidence of aneurysm. DROP HAMMER SETTER UP: Patent with no evidence of aneurysm. PCOM: Hypoplastic bilaterally. IMPRESSION: No evidence of aneurysm or significant stenosis.
[2023-05-29 11:43] LABS: HCT 30.7 % (37.2-46.3); HGB 8.8 g/dL (12.0-15.0); MCH 21.1 pg (27.0-32.0); MCHC 28.7 g/dL (32.0-37.0); MCV 73.6 FL (80.0-97.0); Mean Platelet Volume 10.4 FL (9.5-12.2); NRBC Per 100 WBC 0 X 10*3/uL (0.00-0.01); Platelet Count 187 X 10*3/uL (140-440); RBC 4.17 X 10*6/uL (4.10-5.20); RDW 15.9 % (11.5-14.5); WBC 2.51 X 10*3/uL (4.50-10.00)
[2023-05-29 12:00] LABS: Blood Urea Nitrogen 6.3 mg/dL (9.0-27.0); Calcium 8.4 mg/dL (8.7-10.3); Carbon Dioxide 22.8 mmol/L (21.6-31.8); Chloride 107 mmol/L (96-109); Glucose 90 mg/dL (70-110); Potassium 3.6 mmol/L (3.5-5.5); Sodium 139 mmol/L (135-145)
[2023-05-29 12:32] LABS: Basophils # (A) 0.01 X 10*3/uL (0.00-0.10); Basophils % (A) 0.4 %; Elliptocytes 2+; Eosinophils # (A) 0.04 X 10*3/uL (0.04-0.35); Eosinophils % (A) 1.6 %; Hypochromasia (M) 2+; Lymphocytes # (A) 0.62 X 10*3/uL (0.90-5.00); Lymphocytes % (A) 24.7 %; Microcytosis (M) 2+; Monocytes # (A) 0.27 X 10*3/uL (0.20-1.00); Monocytes % (A) 10.8 %; Neutrophils # (A) 1.56 X 10*3/uL (1.80-7.70); Neutrophils % (A) 62.1 %
--- NOTE | 2023-05-29 13:14 | P.DS ---
Providers Date of admission: 05/27/23 19:41 Expected date of discharge: 05/29/23 Attending physician: Blaze Naik MD Consults: 05/27/23 19:40 Consult Physician Routine Consulting Provider: Amanda Link Consult Reason/Comments: tia Do you want consulting provider notified?: Yes Primary care physician: [facility] Course: Discharge Diagnosis: Transient ischemic attack Hypertension Microcytic anemia Depression Hospital Course: 53-year-old female with history of hypertension, depression presenting with word finding difficulties, and right upper extremity weakness which lasted about 15 minutes. In the ED, blood pressure was 188/121, rest of the vital signs were otherwise within normal limits. Laboratory workup showed WBC 3.4, hemoglobin 9.7, MCV 73.6, platelet 172, creatinine 0.65, glucose 92. Head CT did not show any acute process, CTA head and neck showed no dissection, no high-grade stenosis or intracranial aneurysm, mild to moderate multifocal stenosis of the right anterior cerebral artery and M2/M3 segments of the left middle cerebral artery. Chest x-ray unremarkable, EKG shows normal sinus rhythm. Neurology consulted. Patient admitted for TIA. MRI and MRI did not show any acute process. Patient being discharged on dual antiplatelet, will continue Brilinta for only 30 days, continue aspirin indefinitely, also was started on atorva statin. Patient has microcytic anemia, needs outpatient workup. Patient seen and examined at bedside. Vital signs reviewed and stable. General: Nontoxic, no distress, appears at stated age Derm: Warm, dry Head: Atraumatic, normocephalic, symmetric Eyes: EOMI, no lid lag, anicteric sclera Mouth: No lip lesion, mucus membranes moist Cardiovascular: S1S2 reg, no murmur Lungs: CTA bilateral, no rhonchi, no rales, no accessory muscle use Abdominal: Soft, nontender to palpation, no guarding, no appreciable organomegaly Ext: No gross muscle atrophy, no edema, no contractures Neuro: CN II-XI grossly intact, no focal neuro deficits Psych: Alert, oriented, appropriate affect A total of 33 minutes of time were spent preparing this complex discharge summary. Patient was discharged on 05/29/2023 at 13 00. Patient Condition at Discharge: Stable Plan - Discharge Summary Discharge Rx Participant: No New Discharge Prescriptions: New Aspirin 81 mg PO DAILY #90 tab Ticagrelor [Brilinta] 90 mg PO BID #60 tab Atorvastatin [Lipitor] 40 mg PO DAILY #90 tab lisinopriL [Zestril] 20 mg PO HS #90 tab Continue Citalopram Hydrobromide [CeleXA] 40 mg PO HS lisinopriL [Prinivil] 10 mg PO HS Discontinued Aspirin 81 mg PO ONETIME Discharge Medication List Citalopram Hydrobromide [CeleXA] 40 mg PO HS 02/27/14 [History] lisinopriL [Prinivil] 10 mg PO HS 05/27/23 [History] Aspirin 81 mg PO DAILY #90 tab 05/29/23 [Rx] Atorvastatin [Lipitor] 40 mg PO DAILY #90 tab 05/29/23 [Rx] Ticagrelor [Brilinta] 90 mg PO BID #60 tab 05/29/23 [Rx] lisinopriL [Zestril] 20 mg PO HS #90 tab 05/29/23 [Rx] Follow up Appointment(s)/Referral(s): Lenny Leon MD [REFERRING] - 1 Week Linda Colbert DO [Primary Care Provider] - 1-2 days Patient Instructions/Handouts: Transient Ischemic Attack (DC) Activity/Diet/Wound Care/Special Instructions: Please see PCP and neurology. Discharge Disposition: HOME SELF-CARE
--- NOTE | 2023-05-30 10:34 | P.PN ---
Subjective Progress Note Date: 05/29/23 Patient was seen for a follow-up. Patient is laying in the bed. Offers no complaints. No further focal neurological symptoms. Objective - Vital Signs Vital signs: Vital Signs Temp 98.0 F 05/29/23 07:00 Pulse 65 05/29/23 08:00 Resp 16 05/29/23 08:00 BP 128/83 05/29/23 07:00 Pulse Ox 100 05/29/23 09:13 FiO2 Intake & Output 05/28/23 05/29/23 05/29/23 18:59 06:59 18:59 Intake Total 944 118 Balance 944 118 Intake: Oral 944 118 Other: Voiding Method Toilet # Voids 1 2 - Exam Examination completely normal. NIH stroke scale 0. - Labs CBC & Chem 7: 05/29/23 07:22 05/29/23 07:22 Labs: Abnormal Lab Results - Last 24 Hours (Table) 05/28/23 05/29/23 05/29/23 Range/Units 10:50 07:22 07:22 WBC 2.51 L (4.50-10.00) X 10*3/uL Hgb 8.8 L (12.0-15.0) g/dL Hct 30.7 L (37.2-46.3) % MCV 73.6 L (80.0-97.0) FL MCH 21.1 L (27.0-32.0) pg MCHC 28.7 L (32.0-37.0) g/dL RDW 15.9 H (11.5-14.5) % Neutrophils # 1.56 L (1.80-7.70) X 10*3/uL Lymphocytes # 0.62 L (0.90-5.00) X 10*3/uL Hypochromasia (manual) 2+ A Microcytosis (manual) 2+ A Elliptocytes 2+ A BUN 6.3 L (9.0-27.0) mg/dL BUN/Creatinine Ratio 10.50 L (12.00-20.00) Ratio Calcium 8.4 L (8.7-10.3) mg/dL HDL Cholesterol 37.10 L (40.00-60.00) mg/dL Assessment and Plan Assessment: * Probable TIA, manifesting with transient expressive aphasia, slurred speech, blurred vision and right arm tingling, that resolved in about 15 minutes. * Intracranial atherosclerotic disease noted on CTA. * Hypertensive urgency/accelerated hypertension * Mild dyslipidemia Plan: Patient has presented with stroke/TIA. All symptoms have resolved. Current NIH stroke scale is 0. Patient not a candidate for tPA. MRI of the brain without contrast revealed no evidence of intracranial mass or acute/subacute infarct. Nonspecific white matter changes, likely secondary to small vessel ischemic disease. I personally reviewed MRI, agree with the findings. MRA of the head without contrast showed no evidence of aneurysm or significant stenosis. I personally reviewed MRA, agree with the findings. No stenosis noticeable as was reported in the CTA. 2-D echo revealed normal left ventricular size and systolic function. EF is 55 to 60%. Normal left ventricular wall motion. Normal left atrial size. Trace MR. CTA head and neck showed: No evidence of dissection of the cervical internal carotid arteries or vertebral arteries or any evidence of significant stenosis at the carotid bifurcations. No evidence of intracranial high-grade stenosis or intracranial aneurysm. Mild to moderate multifocal stenosis of the right A2/A3 segments of the anterior cerebral artery and M2/M3 segments of the left middle cerebral artery. Fasting a.m. lipid panel cholesterol 142, LDL 83, HDL 37, triglycerides 107. Start Lipitor 40 mg daily to target LDL <70. Hemoglobin A1c 5.3 Optimize control of blood pressure. Gradually bring blood pressure to nor motensive level. Most recent blood pressure 128/83. Patient had a TIA. Patient was not taking any antiplatelet medication for last 30 days. Patient to be placed on Brilinta 180 mg x 1 dose and then 90 mg twice daily only for 30 days. Patient will also be on aspirin 81 mg daily, that needs to be continued indefinitely. Telemetry monitoring shows no arrhythmia. Neurologically clear for discharge.
== END 2023-05-29 13:49 | disposition home or self-care (01) ==
LOC: EC 18:36 → 6NMEDSUR 19:41
PROVIDERS: ADMIT Internal Medicine; ATTEND Internal Medicine
DX: G45.9 Transient cerebral ischemic attack, unspecified (principal); I16.0 Hypertensive urgency; I67.2 Cerebral atherosclerosis; I10 Essential (primary) hypertension; I66.11 Occlusion and stenosis of right anterior cerebral artery; I66.01 Occlusion and stenosis of right middle cerebral artery; E78.5 Hyperlipidemia, unspecified; I08.1 Rheumatic disorders of both mitral and tricuspid valves; D50.9 Iron deficiency anemia, unspecified; N92.0 Excessive and frequent menstruation with regular cycle; F32.A Depression, unspecified; Z79.899 Other long term (current) drug therapy; Z82.49 Family history of ischemic heart disease and other diseases of the circulatory system
CPT/HCPCS: 96361 ×2; 96372 ×2; 96360; 99285; 36415; 94760; 93005; 93306; 97161; 92523; 80061; 80053; 80048; 84443; 82550; 85025 ×2; 85610; 85730; 83036; 71046; 70496; 70450; 70498; 70544; 70551; G0378 ×3; J1644 ×2; Q9967